=== PATIENT | female | born 1985 | race Caucasian/White ===

== ENCOUNTER 2016-08-21 16:00 | Outpatient (RCR) | payer MEDICAID ==
[~2016-08-21 16:00] MED LIST: VICO5TAB
== END 2016-08-22 | disposition home or self-care (01) ==
LOC: M OUTALCOH 16:00
PROVIDERS: ATTEND Psychiatry & Neurology Psychiatry
DX: F11.20 Opioid dependence, uncomplicated (principal); F17.200 Nicotine dependence, unspecified, uncomplicated

== ENCOUNTER 2016-09-18 16:00 | Outpatient (RCR) | payer MEDICAID | END 2016-09-19 | LOC: M OUTALCOH 16:00 | PROVIDERS: ATTEND Psychiatry & Neurology Psychiatry | DX: F11.20 Opioid dependence, uncomplicated (principal); F17.200 Nicotine dependence, unspecified, uncomplicated ==

== ENCOUNTER 2016-10-13 14:00 | Outpatient (RCR) | payer MEDICAID | END 2016-10-20 | LOC: M OUTALCOH 14:00 | PROVIDERS: ATTEND Psychiatry & Neurology Psychiatry | DX: F11.20 Opioid dependence, uncomplicated (principal); F17.200 Nicotine dependence, unspecified, uncomplicated ==

== ENCOUNTER 2016-11-17 11:00 | Outpatient (RCR) | payer MEDICAID | END 2016-11-19 | LOC: M OUTALCOH 11:00 | PROVIDERS: ATTEND Psychiatry & Neurology Psychiatry | DX: F11.20 Opioid dependence, uncomplicated (principal); F17.200 Nicotine dependence, unspecified, uncomplicated ==

== ENCOUNTER 2016-12-06 10:56 | Emergency (ER) | payer MEDICAID, OTHER ==
[~2016-12-06] VITALS: Ht 162.6 cm; Wt 90.7 kg
[2016-12-06 10:56] VITALS: BP 142/84
[2016-12-06] MEDS ORDERED: FLUO10CA9 PO (11:04)
[2016-12-06] MEDS ORDERED: IBUP80TA PO (11:04)
[2016-12-06] MEDS ORDERED: PRAZ1CAP PO (11:04)
[2016-12-06] MEDS ORDERED: SUBO8MIS SL (11:04)
[2016-12-06] MEDS ORDERED: BUPR150T3 PO (11:04)
[2016-12-06] MEDS ORDERED: KETOROLAC 60 MG/2 ML VIAL (J1885) IM ONE (12:30)
[2016-12-06] MEDS ORDERED: ROBA500T PO (13:01)
[2016-12-06] MEDS ORDERED: NAPR500T PO (13:01)
== END 2016-12-06 13:11 | disposition home or self-care (01) ==
LOC: M ED 12:42
DX: S39.012A Strain of muscle, fascia and tendon of lower back, initial encounter (principal); X50.0XXA Overexertion from strenuous movement or load, initial encounter; Y92.89 Other specified places as the place of occurrence of the external cause; Y93.89 Activity, other specified; Y99.8 Other external cause status; F17.200 Nicotine dependence, unspecified, uncomplicated; Z79.899 Other long term (current) drug therapy; Z88.5 Allergy status to narcotic agent; Z88.8 Allergy status to other drugs, medicaments and biological substances
CPT/HCPCS: 96372; 99282; J1885

== ENCOUNTER 2016-12-14 15:00 | Outpatient (RCR) | payer MEDICAID ==
[~2016-12-14 15:00] MED LIST changes: +BUPR150T3 PO; +FLUO10CA9 PO; +IBUP80TA PO; +NAPR500T PO; +PRAZ1CAP PO; +ROBA500T PO; +SUBO8MIS SL
== END 2016-12-20 ==
LOC: M OUTALCOH 15:00
PROVIDERS: ATTEND Psychiatry & Neurology Psychiatry
DX: F11.20 Opioid dependence, uncomplicated (principal); F17.200 Nicotine dependence, unspecified, uncomplicated

== ENCOUNTER 2016-12-27 14:29 | Outpatient (RCR) | payer MEDICAID | END 2017-01-19 | LOC: M OUTALCOH 14:29 | PROVIDERS: ATTEND Psychiatry & Neurology Psychiatry | DX: F11.20 Opioid dependence, uncomplicated (principal); F17.200 Nicotine dependence, unspecified, uncomplicated ==

== ENCOUNTER 2017-02-07 14:55 | Outpatient (RCR) | payer MEDICAID | END 2017-02-19 | LOC: M OUTALCOH 14:55 | PROVIDERS: ATTEND Psychiatry & Neurology Psychiatry | DX: F11.20 Opioid dependence, uncomplicated (principal); F17.200 Nicotine dependence, unspecified, uncomplicated ==

== ENCOUNTER 2017-02-21 15:28 | Inpatient (IN) | payer MEDICAID, OTHER ==
[~2017-02-21] VITALS: Ht 162.6 cm; Wt 93.8 kg
[~2017-02-21 15:28] MED LIST changes: +AMPICILLIN SOD/SULBACTAM SOD 3 GM in D5W MINI-BAG PLUS 100 ML IV SCH
[2017-02-21] MEDS ORDERED: NS 1,000 ML IV ONE (16:30)
[2017-02-21 16:57] LABS: BASO % 0.2 % (0.0-1.0); EOS # 0.3 K/mm3 (0.0-0.50); EOS % 5.7 % (0.0-3.0); LARGE UNSTAINED CELL # 0.1 K/mm3 (0.0-0.4); LARGE UNSTAINED CELL % 1.1 % (0.0-4.0); LYMPH # 0.6 K/mm3 (1.5-4.5); LYMPH % 11.1 % (24.0-44.0); MEAN CORPUSCULAR HEMOGLOBIN 27.8 pg (27.0-33.0); MEAN CORPUSCULAR HGB CONC 34.1 g/dl (32.0-36.5); MEAN CORPUSCULAR VOLUME 81.5 fl (80.0-96.0); MONO # 0.3 K/mm3 (0.0-0.8); MONO % 5.5 % (0.0-5.0); NEUTROPHILS # 4.1 K/mm3 (1.8-7.7); NEUTROPHILS % 76.4 % (36.0-66.0); PLATELET COUNT, AUTOMATED 145 k/mm3 (150-450); RED CELL DISTRIBUTION WIDTH 13.5 % (11.5-14.5); WHITE BLOOD COUNT 5.3 K/mm3 (4.0-10.0)
[2017-02-21 17:23] LABS: ALBUMIN 3.5 GM/DL (3.2-5.2); ALKALINE PHOSPHATASE 126 U/L (45-117); ALT/SGPT 237 U/L (12-78); AMYLASE 19 U/L (25-115); ANION GAP 10 MEQ/L (8-16); AST/SGOT 178 U/L (15-37); BILIRUBIN,DIRECT 2.8 MG/DL (0.0-0.2); BILIRUBIN,TOTAL 3.9 MG/DL (0.2-1.0); BLOOD UREA NITROGEN 10 MG/DL (7-18); CALCIUM LEVEL 8.6 MG/DL (8.5-10.1); CARBON DIOXIDE LEVEL 26 MEQ/L (21-32); CHLORIDE LEVEL 102 MEQ/L (98-107); CREATININE FOR GFR 0.67 MG/DL (0.55-1.02); GLOMERULAR FILTRATION RATE > 60.0 (>60); GLUCOSE, FASTING 94 MG/DL (70-105); POTASSIUM SERUM 4.1 MEQ/L (3.5-5.1); SODIUM LEVEL 138 MEQ/L (136-145); TOTAL PROTEIN 7.4 GM/DL (6.4-8.2)
[2017-02-21] MEDS ORDERED: PANTOPRAZOLE 40MG INJ (PROTONIX) (C9113) IV ONE (17:30)
[2017-02-21] MEDS ORDERED: METOCLOPRAMIDE INJ 10MG/2ML VIAL (J2765) IV ONE (17:30)
--- NOTE | 2017-02-21 18:14 | REP ---
GALLBLADDER ULTRASOUND: HISTORY: Epigastric pain. There are no filling defects in the gallbladder. The gallbladder wall is thickened. The common bile duct is not seen. A small amount of fluid is present surrounding the gallbladder. There is fatty infiltration of the liver. The pancreas is not seen due to overlying bowel gas. The right kidney is normal in echogenicity. The right kidney measures 5.9 cm in transverse x 4.3 cm in AP x 11.4 cm in cephalocaudal dimensions. There is no hydronephrosis or mass. IMPRESSION: 1. The gallbladder wall is thickened. A small amount of fluid is present surrounding the gallbladder. This is consistent with acalculous cholecystitis. 2. Fatty infiltration of the liver. Signed by Kraig Jimenez MD 02/22/2017 08:19 A
[2017-02-21] MEDS ORDERED: PIPERACILLIN/TAZOBACTAM SOD 3.375 GM in D5W MINI-BAG PLUS 50 ML IV ONE (18:30)
--- NOTE | 2017-02-21 18:45 | HPEPDOC ---
General Surgery H&P Date of Admission History and Physical CHIEF COMPLAINT: Abdominal pain and fever HISTORY OF PRESENT ILLNESS: 31-year-old female presents to the emergency department tonight with complaints of 2 day history of ongoing epigastric and right upper quadrant pain, nausea and vomiting, fever of 103 according to her. Patient reports that she was in her usual state of health up until Sunday evening when she got woken up with severe sharp epigastric and right upper quadrant pain. She was nauseated but was not vomiting. She also has prominent fevers later on up to 103. She was taking ibuprofen to help with the pain and fever. She also notices that her urine has started getting dark. She has not been eating due to the pain and discomfort as well as the nausea. She reports no previous episodes of similar symptoms. She denies taking any illicit drugs, any high amounts of Tylenol. She denies any other members of her family who are sick or any other sick contacts. She denies drinking. She reports that she has been tested for hepatitis C in her antibodies are positive. In high school she has had hepatitis B shots. ALLERGIES: Please see below. HOME MEDICATIONS: Please see below. 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 HEENT: Denies blurred vision and double vision. Denies ear symptoms. Denies hoarseness. NECK: Denies any neck pain. CARDIOVASCULAR: Denies chest pain and palpitations. MUSCULOSKELETAL: Denies arthralgias, back pain and thrombophlebitis. Reports knee pain SKIN: Denies rash. NEUROLOGIC: Denies headache, stroke and transient ischemic attack. PSYCHIATRIC: Denies anxiety and depression. ENDOCRINE: Denies thyroid disease. HEMATOLOGY/ONCOLOGY: Denies any bleeding or clotting disorder. HEART: Denies any chest pains, palpitations, paroxysmal dyspnea, orthopnea. PULMONARY: Denies chronic cough, dyspnea and wheezing. GASTROINTESTINAL: Denies rectal bleeding, family history of colon cancer, constipation, diarrhea, dysphagia GENITOURINARY: Denies dysuria, frequency, hematuria and nocturia. ENDOCRINE: Denies polydipsia, polyphagia, polyuria, heat or cold intolerance. INFECTIOUS: Denies any recent upper respiratory tract infection, UTI, need for use of antibiotics. NUTRITION: Reports poor appetite since the symptoms started PHYSICAL EXAMINATION: VITAL SIGNS: Please see below. GENERAL APPEARANCE: Patient seen at bedside, appears comfortable. Awake, alert, oriented. HEENT: Normocephalic, atraumatic. [place] palpebral conjunctivae. Anicteric sclerae. Lips dry CHEST: No chest wall abnormalities. Normal respiratory motion/effort. NECK: Supple. No thyromegaly. No lymphadenopathies. LUNGS: Lung sounds are clear to auscultation bilaterally. No wheezing appreciated. HEART: No chest wall abnormalities. Heart rate and rhythm are regular with no murmurs. ABDOMEN: Abdomen is moderately obese, soft, moderately rounded. Penicillin incision without any hernia. No umbilical or groin herniation. Tender to palpation over her right upper quadrant area. Patient grimacing. Patient rubbing the area of the right subcostal area with ongoing pain or discomfort. Positive for Sanders sign SKIN: Warm, dry. EXTREMITIES: Extremities have no deformities. No edema identified. NEUROLOGICAL: . ANCILLARIES: . LABORATORY DATA: Please see below. MICROBIOLOGY: Please see below. IMAGING: . US of abdomen 1. The gallbladder wall is thickened. A small amount of fluid is present surrounding the gallbladder. This is consistent with a calculus cholecystitis. There is no cholelithiasis. 2. Fatty infiltration of the liver. IMPRESSION AND PLAN: Her exam and labs fit more pattern of possible obstructive jaundice from: Bile duct stone especially with high elevation of the bilirubin with predominantly direct fraction. She reports febrile episodes though she is afebrile here. We have started on antibiotics for possible cholecystitis/cholangitis. We will repeat her LFTs in the morning. We will get an MRCP to rule out common bile duct stone though if the LFTs are worsening she would most likely need an ERCP. Vital Signs Vital Signs Date Time Temp Pulse Resp B/P (MAP) Pulse Ox O2 Delivery O2 Flow Rate FiO2 02/21/17 15:29 97.2 90 16 127/76 (93) 99 Room Air Laboratory Data Labs 24H Laboratory Tests 2 02/21/17 16:15: Urine Appearance CLOUDYH, Urine Color MARIUM, Urine pH 5.0, Urine Specific [place] 1.021, Urine Protein 2+H, Urine Glucose (UA) NEGATIVE, Urine Ketones 1+H , Urine Urobilinogen 4.0H, Urine Bilirubin 1+H, Urine Leukocyte Esterase 1+H, Urine Blood 2+H, Urine Nitrite NEGATIVE, Urine WBC (Auto) 31H, Urine RBC (Auto) 13H, Urine Hyaline Casts (Auto) 2, Urine Bacteria (Auto) 3+H, Urine Squamous Epithelial Cells 31, Urine Amorphous Sediment SMALLH, Urine Mucus (Auto) SMALL, Urine Sperm (Auto) 02/21/17 16:51: White Blood Count 5.3, Red Blood Count 4.48, Hemoglobin 12.5, Hematocrit 36.5, Mean Corpuscular Volume 81.5, Mean Corpuscular Hemoglobin 27.8, Mean Corpuscular Hemoglobin Concent 34.1, Red Cell Distribution Width 13.5, Platelet Count 145L, Neutrophils (%) (Auto) 76.4H, Lymphocytes (%) (Auto) 11.1L, Monocytes (%) (Auto) 5.5H, Eosinophils (%) (Auto) 5.7H, Basophils (%) (Auto) 0.2 , Neutrophils # (Auto) 4.1, Lymphocytes # (Auto) 0.6L, Monocytes # (Auto) 0.3, Eosinophils # (Auto) 0.3, Basophils # (Auto) 0.0, Large Unclassified Cells % 1.1 , Large Unclassified Cells # 0.1, Anion Gap 10, Glomerular Filtration Rate > 60.0, Calcium Level 8.6, Aspartate Amino Transf (AST/SGOT) 178H, Alanine Aminotransferase (ALT/SGPT) 237H, Alkaline Phosphatase 126H, Total Bilirubin 3.9H, Direct Bilirubin 2.8H, Total Protein 7.4, Albumin 3.5, Albumin/Globulin Ratio 0.90L, Amylase Level 19L, Lipase 82 CBC/BMP Laboratory Tests 02/21/17 16:51 Red Blood Count 4.48, Mean Corpuscular Volume 81.5, Mean Corpuscular Hemoglobin 27.8, Mean Corpuscular Hemoglobin Concent 34.1, Red Cell Distribution Width 13.5 , Neutrophils (%) (Auto) 76.4 H, Lymphocytes (%) (Auto) 11.1 L, Monocytes (%) ( Auto) 5.5 H, Eosinophils (%) (Auto) 5.7 H, Basophils (%) (Auto) 0.2, Neutrophils # (Auto) 4.1, Lymphocytes # (Auto) 0.6 L, Monocytes # (Auto) 0.3, Eosinophils # (Auto) 0.3, Basophils # (Auto) 0.0 Home Medications Scheduled Buprenorphine/Naloxone (Suboxone 8-2 mg) 1 Mis Mis, 1 DOSE SL DAILY, (Reported) PATIENT TAKES ONE AND A HALF FILMS ONE DOSE EVERY DAY Bupropion Hcl (Bupropion HCl Xl) 150 Mg Tab, 150 MG PO DAILY, (Reported) Fluoxetine HCl (Fluoxetine HCl) 10 Mg Cap, 10 MG PO DAILY, (Reported) Prazosin Hcl (Prazosin HCl) 1 Mg Cap, 2 MG PO QHS, (Reported) Scheduled PRN Ibuprofen (Ibuprofen) 200 Mg Tab, 800 MG PO Q6H PRN for PAIN / FEVER, (Reported) Allergies Coded Allergies: Codeine (Verified Adverse Reaction, Unknown, VOMITING / MIGRANE, 10/26/12) Procaine (Verified Adverse Reaction, Unknown, VOMITING / MIGRANE, 10/26/12) ES PELAEZ MD Feb 21, 2017 18:45
[2017-02-21] MEDS ORDERED: IBUPOTC PO (20:12)
--- NOTE | 2017-02-21 20:40 | REPUSA ---
HISTORY: Abdominal pain. Biliary colic. TECHNIQUE: MR abdomen without contrast, with MRCP. COMPARISON: Gallbladder ultrasound February 21, 2017. MR ABDOMEN WITHOUT CONTRAST: Lung bases: No effusion. Liver: 26 cm hepatomegaly. No intrahepatic ductal dilation. Gallbladder: There is a severe edema in the gallbladder fossa and moderate edema surrounding the gall bladder wall. Pancreas: No pancreatic duct dilation. Spleen: 13 cm splenomegaly. Adrenals: Normal size. Kidneys: No hydronephrosis. Aorta: Normal caliber. Bowel loops: Limited evaluation on MRI. Peritoneum: Mild perihepatic ascites. MRCP: The biliary system is normal diameter from the intrahepatic ducts to the common bile duct measu ring 5 mm in the head of the pancreas. The pancreatic duct is normal diameter measuring 2 mm. No ston es are seen within the biliary system. IMPRESSION: 1. Severe hepatomegaly and mild splenomegaly which may indicate intrinsic liver disease such as hepat itis. 2. Significant pericholecystic edema without visible stones or biliary obstruction. Although this may potentially represent acalculus cholecystitis as suggested on recent ultrasound, the appearance may also be caused by 3rd spacing of hepatitis.
[2017-02-21 20:49] VITALS: BP 131/64
[2017-02-21] MEDS: metroNIDAZOLE 500 MG in APPROPRIATE DILUENT 1 EA IV SCH (22:48)
[2017-02-21] MEDS: FLUoxetine 10 MG CAP PO SCH (22:51)
[2017-02-21] MEDS: buPROPion **XL** TABLET 150MG (WELLBUTRIN XL) PO SCH (22:51)
[2017-02-21] MEDS: SENOKOT S TAB PO SCH (22:52)
[2017-02-21] MEDS: LR 1,000 ML IV SCH (22:52)
[2017-02-21] MEDS: PRAZOSIN 1 MG CAP PO SCH (22:52)
[2017-02-21] MEDS: ACETAMINOPHEN TAB 650MG DOSE (2X325MG) PO PRN (22:54)
[2017-02-22] MEDS: AMPICILLIN SOD/SULBACTAM SOD 3 GM in D5W MINI-BAG PLUS 100 ML IV SCH ×4 (02:22→19:48)
[2017-02-22] MEDS: LR 1,000 ML IV SCH ×3 (03:28→18:14)
[2017-02-22] MEDS: metroNIDAZOLE 500 MG in APPROPRIATE DILUENT 1 EA IV SCH ×3 (05:39→21:14)
[2017-02-22] MEDS: ACETAMINOPHEN TAB 650MG DOSE (2X325MG) PO PRN ×2 (05:40→12:26)
[2017-02-22] MEDS: ONDANSETRON 4MG/2ML VIAL (J2405) IV PRN (05:44)
[2017-02-22 06:00] VITALS: BP 108/57
[2017-02-22 07:14] LABS: BASO % 0.2 % (0.0-1.0); EOS # 0.1 K/mm3 (0.0-0.50); EOS % 2.7 % (0.0-3.0); LARGE UNSTAINED CELL # 0.2 K/mm3 (0.0-0.4); LARGE UNSTAINED CELL % 3.5 % (0.0-4.0); LYMPH # 0.7 K/mm3 (1.5-4.5); LYMPH % 10.9 % (24.0-44.0); MEAN CORPUSCULAR HEMOGLOBIN 27.6 pg (27.0-33.0); MEAN CORPUSCULAR HGB CONC 33.9 g/dl (32.0-36.5); MEAN CORPUSCULAR VOLUME 81.5 fl (80.0-96.0); MONO # 0.3 K/mm3 (0.0-0.8); MONO % 6.1 % (0.0-5.0); NEUTROPHILS # 3.6 K/mm3 (1.8-7.7); NEUTROPHILS % 76.7 % (36.0-66.0); PLATELET COUNT, AUTOMATED 115 k/mm3 (150-450); RED CELL DISTRIBUTION WIDTH 13.5 % (11.5-14.5); WHITE BLOOD COUNT 4.7 K/mm3 (4.0-10.0)
[2017-02-22 08:01] LABS: ALBUMIN 2.8 GM/DL (3.2-5.2); ALBUMIN/GLOBULIN RATIO 0.76 (1.00-1.93); ALKALINE PHOSPHATASE 115 U/L (45-117); ALT/SGPT 384 U/L (12-78); ANION GAP 10 MEQ/L (8-16); AST/SGOT 306 U/L (15-37); BILIRUBIN,TOTAL 5.3 MG/DL (0.2-1.0); BLOOD UREA NITROGEN 11 MG/DL (7-18); CARBON DIOXIDE LEVEL 26 MEQ/L (21-32); CHLORIDE LEVEL 102 MEQ/L (98-107); CREATININE FOR GFR 0.65 MG/DL (0.55-1.02); GLOMERULAR FILTRATION RATE > 60.0 (>60); GLUCOSE, FASTING 101 MG/DL (70-105); POTASSIUM SERUM 3.9 MEQ/L (3.5-5.1); SODIUM LEVEL 138 MEQ/L (136-145); TOTAL PROTEIN 6.5 GM/DL (6.4-8.2)
[2017-02-22] MEDS ORDERED: ENOXAPARIN 40 MG/0.4 ML SYRINGE (J1650) SC SCH (09:00)
[2017-02-22] MEDS: buPROPion **XL** TABLET 150MG (WELLBUTRIN XL) PO SCH (09:05)
[2017-02-22] MEDS: SENOKOT S TAB PO SCH ×2 (09:05→21:13)
[2017-02-22] MEDS: FLUoxetine 10 MG CAP PO SCH (09:05)
[2017-02-22] MEDS: PANTOPRAZOLE 40MG INJ (PROTONIX) (C9113) IV SCH (09:05)
[2017-02-22] MEDS: MORPHINE 4 MG/ML 1ML SYRINGE IV PRN ×3 (09:06→19:49)
[2017-02-22 11:46] LABS: BILIRUBIN,DIRECT 4.3 MG/DL (0.0-0.2)
[2017-02-22 14:00] VITALS: BP 129/73
[2017-02-22 16:05] LABS: PERCENT SATURATION 8.8 % (13.2-45.0); TOTAL IRON BINDING CAPACITY 250 UG/DL (250-450)
--- NOTE | 2017-02-22 17:02 | IPNPDOC ---
Subjective General Date/Time Seen The patient was seen on 02/22/17 at 12 pm and at 16:51. Subject Chief Complaint/History The patient is a 31-year-old female admitted with a reason for visit of Acute Cholecystitis, Elevated Lfts. Overnight patient continues to have persistent right upper quadrant pain and discomfort. She also has a fever up to 101. She had an MRCP done. She reports some nausea worse early this morning. Current Medications Current Medications Current Medications Acetaminophen (Tylenol Tab) 650 mg Q4HP PRN PO MILD PAIN or TEMP > 101 Last administered on 02/22/17 12:26; Start 02/21/17 at 19:00; Stop 03/23/17 at 18:59 Ampicillin Sodium/ Sulbactam Sodium 3 gm/Dextrose 100 ml @ 200 mls/hr Q6H IV ; Start 02/21/17 at 02:00; Stop 02/21/17 at 21:54; Status DC Ampicillin Sodium/ Sulbactam Sodium 3 gm/Dextrose 100 ml @ 200 mls/hr Q6H IV Last administered on 02/22/17 15:09; Start 02/22/17 at 02:00; Stop 03/01/17 at 01 :59 Bupropion HCl (Wellbutrin Xl) 150 mg DAILY PO Last administered on 02/22/17 09: 05; Start 02/21/17 at 09:00; Stop 03/23/17 at 08:59 Enoxaparin Sodium (Lovenox) 40 mg DAILY SC Last administered on 02/22/17 09:06 ; Start 02/22/17 at 09:00; Stop 02/27/17 at 08:59 Fluoxetine HCl (PROzac) 10 mg DAILY PO Last administered on 02/22/17 09:05; Start 02/21/17 at 09:00; Stop 03/23/17 at 08:59 Home Med (Med Rec Complete!) ASDIRECTED XX ; Start 02/21/17 at 20:15; Stop at 20:16; Status DC Lactated Ringer's 1,000 ml @ 125 mls/hr Q8H IV Last administered on 02/22/17 10:19; Start 02/21/17 at 19:00; Stop 03/23/17 at 18:59 Metronidazole 500 mg/IV Miscellaneous Supplies 100 ml @ 100 mls/hr Q8H IV Last administered on 02/22/17 12:21; Start 02/21/17 at 21:00; Stop 02/28/17 at 20: 59 Morphine Sulfate (Morphine Sulfate Inj) 4 mg Q2HP PRN IV SEVERE PAIN (PS 8-10) Last administered on 02/22/17 09:06; Start 02/21/17 at 19:00; Stop 02/28/17 at 18: 59 Ondansetron HCl (ZOFRAN INJection) 4 mg Q6HP PRN IV NAUSEA OR VOMITING Last administered on 02/22/17 05:44; Start 02/21/17 at 19:00; Stop 03/23/17 at 18:59 Pantoprazole Sodium (Protonix) 40 mg DAILY IV Last administered on 02/22/17 09: 05; Start 02/22/17 at 09:00; Stop 03/24/17 at 08:59 Prazosin HCl (Minipress) 2 mg QHS PO Last administered on 02/21/17 22:52; Start 02/21/17 at 21:00; Stop 03/23/17 at 20:59 Senna/Docusate Sodium (Senokot S) 1 tab BID PO Last administered on 02/22/17 09 :05; Start 02/21/17 at 21:00; Stop 03/23/17 at 20:59 Allergies Coded Allergies: Codeine (Verified Adverse Reaction, Unknown, VOMITING / MIGRANE, 10/26/12) Procaine (Verified Adverse Reaction, Unknown, VOMITING / MIGRANE, 10/26/12) Objective Physical Examination Examination GENERAL APPEARANCE:Patient seen, sitting up on the chair, appears uncomfortable , rubbing her right upper quadrant area SKIN: Warm and dry. Beginning jaundice. HEENT: Normocephalic, atraumatic. [place] palpebral conjunctiva, beginning mild icteric sclerae. Lips and mucosa appear moist. NECK: Supple, no thyromegaly. No obvious jugular venous distention. LUNGS: Clear to auscultation bilaterally. No wheezing appreciated. HEART: No chest wall abnormalities. Regular rate and rhythm with no murmurs appreciated. ABDOMEN: Abdomen is , moderately rounded, obese, mildly distended. Tender right upper quadrant area, just about the same as last night's exam. EXTREMITIES: Extremities have no deformities. No edema identified. Vital Signs Vital Signs Date Time Temp Pulse Resp B/P (MAP) Pulse Ox O2 Delivery O2 Flow Rate FiO2 02/22/17 09:16 18 02/22/17 06:00 97.5 82 108/57 (74) 96 Room Air I&Os I&O- Last 24 Hours up to 6 AM 02/22/17 06:00 Intake Total 0 ml Output Total 400 ml Balance -400 ml Laboratory Data Labs 24H Laboratory Tests 2 02/22/17 06:56: White Blood Count 4.7, Red Blood Count 3.95L, Hemoglobin 10.9L, Hematocrit 32.2L , Mean Corpuscular Volume 81.5, Mean Corpuscular Hemoglobin 27.6, Mean Corpuscular Hemoglobin Concent 33.9, Red Cell Distribution Width 13.5, Platelet Count 115L, Neutrophils (%) (Auto) 76.7H, Lymphocytes (%) (Auto) 10.9L, Monocytes (%) (Auto) 6.1H, Eosinophils (%) (Auto) 2.7, Basophils (%) (Auto) 0.2 , Neutrophils # (Auto) 3.6, Lymphocytes # (Auto) 0.7L, Monocytes # (Auto) 0.3, Eosinophils # (Auto) 0.1, Basophils # (Auto) 0.0, Large Unclassified Cells % 3.5 , Large Unclassified Cells # 0.2, Anion Gap 10, Glomerular Filtration Rate > 60.0, Blood Urea Nitrogen 11, Creatinine 0.65, Sodium Level 138, Potassium Level 3.9, Chloride Level 102, Carbon Dioxide Level 26, Calcium Level 8.0L, Aspartate Amino Transf (AST/SGOT) 306H, Alanine Aminotransferase (ALT/SGPT) 384H , Alkaline Phosphatase 115, Total Bilirubin 5.3H, Direct Bilirubin 4.3H, Total Protein 6.5, Albumin 2.8L, Albumin/Globulin Ratio 0.76L 02/22/17 15:14: Iron Level 22L, Total Iron Binding Capacity 250, Transferrin % Saturation 8.8L, Salicylates Level < 1.7L, Acetaminophen Level < 2.0L CBC/BMP Laboratory Tests 02/22/17 06:56 Red Blood Count 3.95 L, Mean Corpuscular Volume 81.5, Mean Corpuscular Hemoglobin 27.6, Mean Corpuscular Hemoglobin Concent 33.9, Red Cell Distribution Width 13.5, Neutrophils (%) (Auto) 76.7 H, Lymphocytes (%) (Auto) 10.9 L, Monocytes (%) (Auto) 6.1 H, Eosinophils (%) (Auto) 2.7, Basophils (%) ( Auto) 0.2, Neutrophils # (Auto) 3.6, Lymphocytes # (Auto) 0.7 L, Monocytes # ( Auto) 0.3, Eosinophils # (Auto) 0.1, Basophils # (Auto) 0.0, Calcium Level 8.0 L , Aspartate Amino Transf (AST/SGOT) 306 H, Alanine Aminotransferase (ALT/SGPT) 384 H, Alkaline Phosphatase 115, Total Bilirubin 5.3 H, Direct Bilirubin 4.3 H, Total Protein 6.5, Albumin 2.8 L Impression Right upper quadrant pain and fever, elevated LFTs Initially presumed acute cholecystitis, acalculous cholecystitis is no stones were seen on the ultrasound. Review off the performed MRCP did not show any evidence for stones in the gallbladder nor any biliary dilatation. Her common bile duct is about 5 mm. Her liver is noted to be very enlarged with the tip of the liver extending to the anterior superior iliac spine level. Likewise her spleen. Her LFTs continued to worsen though the transaminitis is not Prominent, her bilirubin has risen to about 5. I checked the direct fraction was 4.3. At this point is not clear whether she actually has cholecystitis or this is primarily hepatitis. I have asked her production team leader to come seizure and render their opinion. I have gotten a HIDA scan to see if this can help us distinguish the source of the elevated liver function test. On further questioning she says that she has tested positive for hepatitis C antibodies which means she has had a hepatitis C infection. She has hepatitis B immunization when she was in high school according to her. Further questioning whether she drinks, she denies this. She did not take much Tylenol. She denies any other illicit substances. I will await for the gastroenterology evaluation and results of HIDA scan but seemingly this is not as initially thought of as cholecystitis. Plan / VTE VTE Prophylaxis Ordered?: Yes ES PELAEZ MD Feb 22, 2017 17:02
--- NOTE | 2017-02-22 17:17 | REP ---
REASON: Hepatitis, cholecystitis. After the intravenous administration of 6.4 millicuries of Technetium 99M mebrofenin hepatobiliary imaging was performed. The gallbladder is probably visualized at 40 minutes. At 1 hour no activity is seen in the duodenum. The patient returned for a 3 hours post injection scintiscan showing increased activity in the gallbladder but again no evidence of activity in the small bowel. IMPRESSION: There is no evidence of acute cholecystitis since the gallbladder visualizes, however, there is no small bowel activity at 3 hours. No gallbladder ejection fraction was ordered or performed. This exam needs to be correlated clinically. Signed by Marques Chen DO 02/22/2017 05:46 P
[2017-02-22] MEDS: PRAZOSIN 1 MG CAP PO SCH (21:14)
[2017-02-22 22:00] VITALS: BP 122/58
[2017-02-23] MEDS: MORPHINE 4 MG/ML 1ML SYRINGE IV PRN ×4 (00:17→22:59)
[2017-02-23] MEDS: AMPICILLIN SOD/SULBACTAM SOD 3 GM in D5W MINI-BAG PLUS 100 ML IV SCH ×4 (02:53→20:56)
[2017-02-23] MEDS: LR 1,000 ML IV SCH ×3 (03:27→20:56)
[2017-02-23] MEDS: metroNIDAZOLE 500 MG in APPROPRIATE DILUENT 1 EA IV SCH ×3 (05:37→23:00)
[2017-02-23 06:00] VITALS: BP 131/58
[2017-02-23 07:18] LABS: BASO % 0.5 % (0.0-1.0); EOS # 0.1 K/mm3 (0.0-0.50); EOS % 3.3 % (0.0-3.0); LARGE UNSTAINED CELL # 0.1 K/mm3 (0.0-0.4); LARGE UNSTAINED CELL % 3.6 % (0.0-4.0); LYMPH # 1.4 K/mm3 (1.5-4.5); MEAN CORPUSCULAR HGB CONC 34.1 g/dl (32.0-36.5); MEAN CORPUSCULAR VOLUME 82.1 fl (80.0-96.0); MONO # 0.3 K/mm3 (0.0-0.8); MONO % 6.5 % (0.0-5.0); NEUTROPHILS # 2.2 K/mm3 (1.8-7.7); PLATELET COUNT, AUTOMATED 100 k/mm3 (150-450); RED CELL DISTRIBUTION WIDTH 13.7 % (11.5-14.5)
[2017-02-23 07:23] LABS: INR 1.12
--- NOTE | 2017-02-23 07:37 | IPNPDOC ---
Subjective General Date/Time Seen The patient was seen on 02/23/17 at 07:34. Subject Chief Complaint/History The patient is a 31-year-old female admitted with a reason for visit of Acute Cholecystitis, Elevated Lfts. Continues to complain of right upper quadrant pain and discomfort, episodes of nausea. No febrile episodes noted overnight. Patient seen by Dr. Mack yesterday. HIDA scan completed late yesterday. Current Medications Current Medications Current Medications Acetaminophen (Tylenol Tab) 650 mg Q4HP PRN PO MILD PAIN or TEMP > 101 Last administered on 02/22/17 12:26; Start 02/21/17 at 19:00; Stop 03/23/17 at 18:59 Ampicillin Sodium/ Sulbactam Sodium 3 gm/Dextrose 100 ml @ 200 mls/hr Q6H IV ; Start 02/21/17 at 02:00; Stop 02/21/17 at 21:54; Status DC Ampicillin Sodium/ Sulbactam Sodium 3 gm/Dextrose 100 ml @ 200 mls/hr Q6H IV Last administered on 02/23/17 02:53; Start 02/22/17 at 02:00; Stop 03/01/17 at 01 :59 Bupropion HCl (Wellbutrin Xl) 150 mg DAILY PO Last administered on 02/22/17 09: 05; Start 02/21/17 at 09:00; Stop 03/23/17 at 08:59 Enoxaparin Sodium (Lovenox) 40 mg DAILY SC Last administered on 02/22/17 09:06 ; Start 02/22/17 at 09:00; Stop 02/27/17 at 08:59 Fluoxetine HCl (PROzac) 10 mg DAILY PO Last administered on 02/22/17 09:05; Start 02/21/17 at 09:00; Stop 03/23/17 at 08:59 Home Med (Med Rec Complete!) ASDIRECTED XX ; Start 02/21/17 at 20:15; Stop at 20:16; Status DC Lactated Ringer's 1,000 ml @ 125 mls/hr Q8H IV Last administered on 02/23/17 03:27; Start 02/21/17 at 19:00; Stop 03/23/17 at 18:59 Metronidazole 500 mg/IV Miscellaneous Supplies 100 ml @ 100 mls/hr Q8H IV Last administered on 02/23/17 05:37; Start 02/21/17 at 21:00; Stop 02/28/17 at 20: 59 Morphine Sulfate (Morphine Sulfate Inj) 4 mg Q2HP PRN IV SEVERE PAIN (PS 8-10) Last administered on 02/23/17 00:17; Start 02/21/17 at 19:00; Stop 02/28/17 at 18: 59 Ondansetron HCl (ZOFRAN INJection) 4 mg Q6HP PRN IV NAUSEA OR VOMITING Last administered on 02/22/17 05:44; Start 02/21/17 at 19:00; Stop 03/23/17 at 18:59 Pantoprazole Sodium (Protonix) 40 mg DAILY IV Last administered on 02/22/17 09: 05; Start 02/22/17 at 09:00; Stop 03/24/17 at 08:59 Prazosin HCl (Minipress) 2 mg QHS PO Last administered on 02/22/17 21:14; Start 02/21/17 at 21:00; Stop 03/23/17 at 20:59 Senna/Docusate Sodium (Senokot S) 1 tab BID PO Last administered on 02/22/17 21 :13; Start 02/21/17 at 21:00; Stop 03/23/17 at 20:59 Allergies Coded Allergies: Codeine (Verified Adverse Reaction, Unknown, VOMITING / MIGRANE, 10/26/12) Procaine (Verified Adverse Reaction, Unknown, VOMITING / MIGRANE, 10/26/12) Objective Physical Examination Examination GENERAL APPEARANCE:Patient seen, laying in bed, awake, alert, and oriented. Comfortable, in no acute distress. SKIN: Warm and moist. HEENT: Normocephalic, atraumatic. [place] palpebral conjunctiva, anicteric sclerae. Lips and mucosa appear moist. NECK: Supple, no thyromegaly. No obvious jugular venous distention. LUNGS: Clear to auscultation bilaterally. No wheezing appreciated. HEART: No chest wall abnormalities. Regular rate and rhythm with no murmurs appreciated. ABDOMEN: Abdomen is , moderately obese, round, tender at right upper quadrant area. Just about same since admission EXTREMITIES: Extremities have no deformities. No edema identified. Vital Signs Vital Signs Date Time Temp Pulse Resp B/P (MAP) Pulse Ox O2 Delivery O2 Flow Rate FiO2 02/23/17 06:00 96.8 81 18 131/58 (82) 96 Room Air I&Os I&O- Last 24 Hours up to 6 AM 02/23/17 06:00 Intake Total 2860 ml Output Total 1050 ml Balance 1810 ml Laboratory Data Labs 24H Laboratory Tests 2 02/22/17 15:14: Iron Level 22L, Total Iron Binding Capacity 250, Transferrin % Saturation 8.8L, Salicylates Level < 1.7L, Acetaminophen Level < 2.0L 02/22/17 17:46: 02/23/17 06:25: White Blood Count 4.0, Red Blood Count 3.69L, Hemoglobin 10.3L, Hematocrit 30.3L , Mean Corpuscular Volume 82.1, Mean Corpuscular Hemoglobin 28.0, Mean Corpuscular Hemoglobin Concent 34.1, Red Cell Distribution Width 13.7, Platelet Count 100L, Neutrophils (%) (Auto) 55.0, Lymphocytes (%) (Auto) 31.0, Monocytes (%) (Auto) 6.5H, Eosinophils (%) (Auto) 3.3H, Basophils (%) (Auto) 0.5, Neutrophils # (Auto) 2.2, Lymphocytes # (Auto) 1.4L, Monocytes # (Auto) 0.3, Eosinophils # (Auto) 0.1, Basophils # (Auto) 0.0, Large Unclassified Cells % 3.6 , Large Unclassified Cells # 0.1, Prothrombin Time 14.6H, Prothromb Time International Ratio 1.12, Activated Partial Thromboplast Time 60.4H CBC/BMP Laboratory Tests 02/23/17 06:25 Red Blood Count 3.69 L, Mean Corpuscular Volume 82.1, Mean Corpuscular Hemoglobin 28.0, Mean Corpuscular Hemoglobin Concent 34.1, Red Cell Distribution Width 13.7, Neutrophils (%) (Auto) 55.0, Lymphocytes (%) (Auto) 31.0, Monocytes (%) (Auto) 6.5 H, Eosinophils (%) (Auto) 3.3 H, Basophils (%) ( Auto) 0.5, Neutrophils # (Auto) 2.2, Lymphocytes # (Auto) 1.4 L, Monocytes # ( Auto) 0.3, Eosinophils # (Auto) 0.1, Basophils # (Auto) 0.0 Microbiology Microbiology 02/22/17 Blood Culture, Received Pending Imaging Studies HIDA Scan There is no evidence of acute cholecystitis since the gallbladder visualizes, however, there is no small bowel activity at 3 hours. No gallbladder ejection fraction was ordered or performed. This exam needs to be correlated clinically. Impression Right upper quadrant pain with fever, elevated LFTs Initially thought of as coming from, cholecystitis. No stones were visualized on imaging studies. The results of the HIDA scan yesterday is more compatible with probably liver dysfunction as the gallbladder was slowly able to be visualized. There was no activity into the duodenum even after 3 hours consistent with some obstructive dysfunction, probably cholestasis. This is more consistent with hepatitis. Gastroenterology is on board. Remaining management is supportive. Her bilirubin is still trending upwards but maybe plateauing. I will discontinue the acetamenophen and just give her oxycodone for pain control. Not sure if continuing antibiotics would mean much for her but given an unclear picture would continue this for now. Will discuss with hospitalist service for possible transfer of service to medicine, as no surgical intervention needed at this time. Plan / VTE VTE Prophylaxis Ordered?: Yes ES PELAEZ MD Feb 23, 2017 07:37
[2017-02-23 07:43] LABS: ALBUMIN 2.5 GM/DL (3.2-5.2); ALBUMIN/GLOBULIN RATIO 0.81 (1.00-1.93); ALKALINE PHOSPHATASE 139 U/L (45-117); ALT/SGPT 564 U/L (12-78); ANION GAP 9 MEQ/L (8-16); AST/SGOT 396 U/L (15-37); BILIRUBIN,TOTAL 5.7 MG/DL (0.2-1.0); BLOOD UREA NITROGEN 9 MG/DL (7-18); CARBON DIOXIDE LEVEL 27 MEQ/L (21-32); CHLORIDE LEVEL 103 MEQ/L (98-107); CREATININE FOR GFR 0.54 MG/DL (0.55-1.02); GLOMERULAR FILTRATION RATE > 60.0 (>60); GLUCOSE, FASTING 90 MG/DL (70-105); POTASSIUM SERUM 3.8 MEQ/L (3.5-5.1); SODIUM LEVEL 139 MEQ/L (136-145); TOTAL PROTEIN 5.6 GM/DL (6.4-8.2)
--- NOTE | 2017-02-23 08:55 | CR.PDOC ---
[facility] Consultation Consultation DATE OF CONSULTATION: Feb 22, 2017 at 15:28 REFERRING PROVIDER: Dr. Terry Becker ATTENDING PHYSICIAN: Dr. Terry Becker REASON FOR CONSULTATION/CHIEF COMPLAINT: Abnormal LFTs. HISTORY OF PRESENT ILLNESS: 31-year-old woman was in her usual state of health until Sunday night when she started having acute onset epigastric abdominal pain with nausea and vomiting and subjective fevers, came to the emergency room yesterday because of persistent abdominal pain and was admitted for possible cholecystitis. Patient was also noted to have abnormal LFTs and GI was consulted for the same. Patient was examined bedside. Patient reports sudden onset, epigastric abdominal pain, sharp in nature, continuous, non radiating, severe in intensity, associated with nausea and vomiting and fever. ( had one documented fever of 101 in hospital yesterday). Denies any precipitating events, sick contacts, alcohol or drug use, unusual food intake. Patient also reports following regularly at psychiatry center for her medication and denies any OTC medications. ALLERGIES: As per EMR. HOME MEDICATIONS: as per EMR . PAST MEDICAL HISTORY: 1. Hepatitis C antibody positive without detectable virus 2. H/o heroin use and currently on Suboxone. PAST SURGICAL HISTORY: 1. reviewed. FAMILY HISTORY: NO Gi cancers or liver problems. SOCIAL HISTORY: Tobacco use: active smoker ETOH: very rare. social - as per patient and nothing recently. Illicit drug use: Prior heroin use- last used in 2014. quit. Currently on suboxone.. Used to smoke marijuana in past. but denies any recent use. REVIEW OF SYSTEMS: CONSTITUTIONAL: Fever. HEENT: No sore throat, no cough. normal vision. CARDIOVASCULAR: no chest pain or palpitations RESPIRATORY: No cough or chest pain. No SOB GENITOURINARY: NO burning micturition or pain. MUSCULOSKELETAL: No joint pain. GASTROINTESTINAL: as above.. SKIN: No rash. NEUROLOGICAL: No focal deficits, AO x 3. patient does report feeling confused initially but now normal. PSYCHIATRIC: Stable, normal affect. HEMATOLOGIC/LYMPHATIC: NO easy bruising, no gum bleeding. PHYSICAL EXAMINATION: VITAL SIGNS: reviewed as per EMR. had fever spike in last 24 hours. GENERAL APPEARANCE: Comfortable, resting on the chair, AAO x 3.. HEENT: NC/ AT, K[place], no neck swellings or lymphadenopathy. RESPIRATORY: Bilateral clear air entry. CARDIOVASCULAR: s1, s2 heard. no murmurs. ABDOMEN: Soft, Obese, minimal right upper quadrant and epigastric abdominal tenderness but no rigidity or guarding. EXTREMITIES: No pedal edema. NEUROLOGICAL: No focal deficits. AAO x 3. LABORATORY DATA: Reviewed in EMR. Imaging results reviewed in EMR. ASSESSMENT: 1. Abnormal LFTs with Mixed hepatocellular and cholestatic pattern. MRI - normal CBD and normal Intrahepatic ducts with fluid in perihepatic and subhepatic area and gall bladder fossa -- DDx - Likely acute hepatitis -- Viral ( hepatitis A, B, C) vs acute on chronic liver disease ( low albumin level and splenomegaly). Less likely biliary obstruction ( no gall stones and normal biliary tree on MRCP). 2. H/o HCV antibody positive but no detectable viral load as per patient- needs further evaluation. RECOMMENDATIONS: - Will obtain Urine toxicology, Acute viral hepatitis markers - HBsAg, HBcAb ( IgM), HBeAg, HBsAb, HAV igM, HAV igG, HCV viral load RNA PCR, - Also will obtain PT/ INR , Septic work up - blood cultures. - daily LFTs and CBC to check for the trend. - Avoid NSAIDs, Ay hepatotoxic medications. - Clear liquid only if tolerating PO - Continue IV antibiotics. - Gi will closely follow. Plan of care discussed with patient and primary team. Allergies Coded Allergies: Codeine (Verified Adverse Reaction, Unknown, VOMITING / MIGRANE, 10/26/12) Procaine (Verified Adverse Reaction, Unknown, VOMITING / MIGRANE, 10/26/12) Home Medications Scheduled Buprenorphine/Naloxone (Suboxone 8-2 mg) 1 Mis Mis, 1 DOSE SL DAILY, (Reported) PATIENT TAKES ONE AND A HALF FILMS ONE DOSE EVERY DAY Bupropion Hcl (Bupropion HCl Xl) 150 Mg Tab, 150 MG PO DAILY, (Reported) Fluoxetine HCl (Fluoxetine HCl) 10 Mg Cap, 10 MG PO DAILY, (Reported) Prazosin Hcl (Prazosin HCl) 1 Mg Cap, 2 MG PO QHS, (Reported) Scheduled PRN Ibuprofen (Ibuprofen) 200 Mg Tab, 800 MG PO Q6H PRN for PAIN / FEVER, (Reported) RICKY EDWARDS MD Feb 22, 2017 16:56
[2017-02-23] MEDS: SENOKOT S TAB PO SCH ×2 (09:17→22:59)
[2017-02-23] MEDS: buPROPion **XL** TABLET 150MG (WELLBUTRIN XL) PO SCH (09:17)
[2017-02-23] MEDS: FLUoxetine 10 MG CAP PO SCH (09:17)
[2017-02-23] MEDS: PANTOPRAZOLE 40MG INJ (PROTONIX) (C9113) IV SCH (09:18)
[2017-02-23 10:07] LABS: BILIRUBIN,DIRECT 4.7 MG/DL (0.0-0.2)
[2017-02-23 10:59] LABS: HEPATITIS B SURFACE ANTIBODY POSITIVE (POSITIVE)
[2017-02-23] MEDS: oxyCODONE 5MG TAB PO PRN (13:06)
[2017-02-23] MEDS ORDERED: NICOTINE 7 MG/24 HR TRANSDERMAL TD PRN (13:30)
[2017-02-23 14:00] VITALS: BP 128/83
--- NOTE | 2017-02-23 14:48 | HPE ---
DATE OF ADMISSION: 02/23/2017 31-year-old female who was admitted to the hospital initially for cholecystitis under the care of Dr. Griggs, noted to have hepatitis and not cholecystitis. GI was already consulted and the patient is being transferred over to the medical/surgical service, as the patient is no longer a surgical patient. HISTORY OF PRESENT ILLNESS: This is a 31-year-old female with a significant past medical history of having had a history of hepatitis C antibody that was positive but without detectable virus, history of heroin IV use in 2015 and currently on Suboxone, who denies any recent IV drug abuse, who presented to the hospital on 02/21/2017 due to complaint of abdominal pain that lasted for 3 days. The patient complains of epigastric right upper quadrant pain that started three days ago prior to her admission to the hospital. The patient was admitted under the surgical service to diagnosis of cholecystitis under the care of Dr. Griggs the general surgeon. Subsequently, due to the elevated transaminitis, GI was consulted. After two days of hospitalization, it was felt that the patient did not have cholecystitis, but more transaminitis secondary to hepatitis. GI was consulted yesterday and was seen by Dr. Dharmesh Mack. The general surgeon requested hospitalization under the care of medicine for transaminitis and suspected hepatitis. He will continue to follow along with us. The patient states that she had abdominal pain on the right upper quadrant along with nausea and vomiting with fever. These symptoms have symptoms not exacerbated while in the hospital, but she had been nothing by mouth for possible surgery for cholecystitis. She was already started on empiric antibiotics by the general surgeon. The patient denies any alcohol use, change in diet, change in medications. Denies any of any trauma to the abdomen. Denies any diarrhea, dysuria, or any recent illness that would contribute to her abdominal discomfort. The patient denies any recent blood transfusion, but she does mention that she utilized IV drugs in 2014. The patient states that when she was for her child, who is roughly 4 years old, she was tested for multiple pathogens, including HIV, hepatitis, and at that time was negative for any antibodies. Subsequently, after her second child's , she also was tested and was negative for hepatitis pathogen at that time or antibody at that time, but she does mention that she utilized IV drug abuse in 2014, which was in between her two pregnancies. The patient is resting comfortably in the medical/surgical floor. Family at the bedside. REVIEW OF SYSTEMS: Ten-point review of systems is negative other than those described in history of present illness. PAST MEDICAL HISTORY: Significant for: 1. Hepatitis C antibody positive without detectable virus. HIV negative in 2013. 2. History of heroin IV use in 2014, last use and currently on Suboxone. PAST SURGICAL HISTORY: Includes 1. section. 2. Dilatation and curettage. 3. Tonsillectomy. 4. Ankle surgery. FAMILY MEDICAL HISTORY: Father medical history is unknown. Mother is healthy, had a cholecystectomy. SOCIAL HISTORY: The patient smokes a half of a pack a day and has been doing so for 15 years. She rarely drinks alcohol, but currently denies any alcohol use. She used to be use heroin, last use in 2014, but quit. Currently on Suboxone. She also used to smoke marijuana in the past but denies any recent use as well. ALLERGIES: She is allergic to CODEINE and PROCAINE. Codeine makes her nauseous. HOME MEDICATIONS: Medications from home are as follows: - Suboxone 8-2 mg one dose sublingual daily - bupropion 150 mg by mouth daily - fluoxetine 10 mg by mouth daily - ibuprofen 800 mg every 6 hours as needed - prazosin 2 mg at night PHYSICAL EXAMINATION: VITAL SIGNS: Last vitals, temperature is 96.8, heart rate of 81, respiratory rate of 16, blood pressure is 131/58, saturating 96% on room air. HEENT: Normocephalic. No trauma. Inspection of the eyes, nose and throat normal. Pupils equal, round, and reactive to light and accommodation. Mucous is moist. Neck is supple. No tracheal deviation. CARDIAC: S1, S2. Regular rate and rhythm. Pulses are present. LUNGS: Equal entry. Did not hear any wheezes, rales or rhonchi. ABDOMEN: Soft, nontender. Bowel sounds present. Slight guarding, but no peritoneal signs, guarding or rigidity noted. The patient has normal mood and affect for current situation. Family at bedside. DIAGNOSTIC STUDIES: WBC today was 4, hemoglobin and hematocrit was 10.3 and 30.3, which is stable. Platelet count of 100, slightly down from admission of 145, but her hemoglobin and hematocrit has trended down, most likely from phlebotomy and IV fluids. Complete metabolic today is within normal except for a creatinine of 0.54, calcium 8, and total bilirubin is 5.7, direct bilirubin is 4.7, AST and ALT is 396 and 564, alkaline phosphatase is 139, total protein 5.6, albumin is 2.5. Her AST and ALT have been trending upwards, along with her bilirubin and direct bilirubin as well. Initially when she came in her lipase was normal, amylase 19. Currently, her ceruloplasmin is pending. Iron is low. TIBC is normal. Transferrin saturation is 8.8. Coagulation studies: INR is within normal. PT is 14.6, PTT is 60.4. Toxicology: Salicylate is less than 1.7, acetaminophen is less than 2.0. UA is positive for urinary tract infection (UTI). Atypical ANCA, P-ANCA, C-ANCA, anti mitochondrial antibodies all pending at this time. In addition, hepatitis panel is pending at this time as well. Again, previously she had HIV testing done, which showed negative in 2012 and in 2013. She had imaging of the gallbladder, which showed gallbladder wall that is thickened, small amount of fluid is present surrounding the gallbladder. This is consistent with acalculous cholecystitis. Fatty infiltration of the liver. MRI of the abdomen showed severe hepatomegaly with mild splenomegaly, which may indicate intrinsic liver disease, such as hepatitis. Significant pericholecystic edema without visible stones or biliary obstruction. Although this may potentially present acalculous cholecystitis, as suggested by recent ultrasound. Appearance could be also caused by third spacing of hepatitis. HIDA scan showed there is no evidence of acute cholecystitis of the gallbladder visualized. However, no small bowel activity at 3 hours. No gallbladder ejection fraction was ordered or performed. This examination needs to be correlated clinically. ASSESSMENT AND PLAN: This is a 31-year-old female with significant past medical history of hepatitis C that is antibody positive without detectable virus but history of IV heroin use, last used had been in 2015, currently on Suboxone, who presented complaining of right upper quadrant pain, roughly 5 days ago. Initially admitted under the surgical service for acalculous cholecystitis. Currently on antibiotic therapy, and GI consult was performed due to transaminitis. Dr. Mack currently on board. The patient's service is being transferred over to the hospitalist service as Dr. Griggs does not believe that the patient currently has cholecystitis and transaminitis secondary to hepatitis. 1. Transaminitis, suspected due to hepatitis. Lab studies, including hepatitis panel and immunology studies, including CYRIL studies are pending at this time. We will continue to follow along and appreciate Dr. Mack's recommendation and evaluation. Would limit nonessential medication as allowed. 2. Urinary tract infection (UTI). Currently on antibiotics for presumed cholecystitis. We will repeat UA and obtain a urine culture as none resulted and discontinue antibiotic as tolerated. Dr. Griggs and the surgical team will still be on the case and will follow the patient along with us. We will also obtain HIV testing, which the patient has consented to. Avoid hepatotoxic medication if possible. 3. Deep vein thrombosis (DVT) prophylaxis with early ambulation and Lovenox.
--- NOTE | 2017-02-23 19:26 | IPNPDOC ---
Date Seen The patient was seen on 02/23/17. at 5:05 pm. Progress Note SUBJECTIVE: Patient is a 31-year-old woman admitted with right upper quadrant and epigastric abdominal pain with nausea and vomiting and labs showing abnormal LFTs.. Work up till now - likely acute hepatitis vs decompensation of chronic liver disease and less likely acute cholecystitis. Interval history: Patient still has abdominal pain but not having any more vomiting and her appetite improved and requesting to eat something. NO fever over the last 24 hours. Denies any any symptoms including diarrhea. PHYSICAL EXAMINATION: VITAL SIGNS: Afebrile over last 24 hours. GENERAL: AAO x 3, mild distress from abdominal pain but ambulating. HEENT: Mild scleral icterus. RESPIRATORY: NO respiratory distress. ABDOMINAL: Soft, tenderness in right upper quadrant. no rigidity or guarding, LABORATORY DATA: reviewed in EMR. HBV immune HAV igM negative. Normal PT/INR. Hepatitis E igM and HCV PCR in lab ( called the lab to confirm -- they are send out labs and will take more time for results.) Blood culture in lab. ASSESSMENT: -- Abnormal LFTs - mixed pattern -- still uptrend in LFTs. DDx - acute hepatitis ( viral or autoimmune) vs decompensation of chronic liver disease ( in view of low albumin) vs DILI. Normal INR and normal renal function. -- Acute onset abdominal pain with nausea and vomiting - now improving. -- Possible UTI as per primary team. Recommendations: - follow up HEV igM, HCV PCR, and autoimmune hepatitis work up. - Also follow up septic work up and continue antibiotics for now. - Can start on clear liquid diet and advance as tolerated. - Obtain Daily LFTs and CBC to trend. - Avoid hepatotoxic medication. - If LFTs continue to worsen then will need repeat complete abdominal USG to r/ o ascites and reassess biliary tree. - Recall GI if any acute change in status. Plan of care discussed with patient and updated nursing team to advance diet. DISPOSITION: . RICKY EDWARDS MD Feb 23, 2017 19:26
[2017-02-23 22:00] VITALS: BP 117/87
[2017-02-23] MEDS: PRAZOSIN 1 MG CAP PO SCH (23:10)
[2017-02-24] MEDS: AMPICILLIN SOD/SULBACTAM SOD 3 GM in D5W MINI-BAG PLUS 100 ML IV SCH ×4 (02:56→20:58)
[2017-02-24] MEDS: LR 1,000 ML IV SCH ×3 (03:09→19:28)
[2017-02-24] MEDS: metroNIDAZOLE 500 MG in APPROPRIATE DILUENT 1 EA IV SCH ×3 (05:44→21:03)
[2017-02-24 06:00] VITALS: BP 118/86
[2017-02-24 06:52] LABS: BASO % 0.7 % (0.0-1.0); EOS # 0.1 K/mm3 (0.0-0.50); EOS % 2.7 % (0.0-3.0); LARGE UNSTAINED CELL # 0.2 K/mm3 (0.0-0.4); LARGE UNSTAINED CELL % 4.2 % (0.0-4.0); LYMPH # 2.5 K/mm3 (1.5-4.5); LYMPH % 53.9 % (24.0-44.0); MEAN CORPUSCULAR HEMOGLOBIN 27.8 pg (27.0-33.0); MEAN CORPUSCULAR HGB CONC 33.7 g/dl (32.0-36.5); MEAN CORPUSCULAR VOLUME 82.7 fl (80.0-96.0); MONO # 0.2 K/mm3 (0.0-0.8); MONO % 4.9 % (0.0-5.0); NEUTROPHILS # 1.5 K/mm3 (1.8-7.7); NEUTROPHILS % 33.6 % (36.0-66.0); PLATELET COUNT, AUTOMATED 123 k/mm3 (150-450); WHITE BLOOD COUNT 4.6 K/mm3 (4.0-10.0)
[2017-02-24 06:58] LABS: INR 1.04
[2017-02-24 07:08] LABS: ALBUMIN 2.4 GM/DL (3.2-5.2); ALBUMIN/GLOBULIN RATIO 0.69 (1.00-1.93); ALKALINE PHOSPHATASE 229 U/L (45-117); ALT/SGPT 408 U/L (12-78); ANION GAP 9 MEQ/L (8-16); AST/SGOT 145 U/L (15-37); BILIRUBIN,TOTAL 4.3 MG/DL (0.2-1.0); BLOOD UREA NITROGEN 8 MG/DL (7-18); CALCIUM LEVEL 8.1 MG/DL (8.5-10.1); CARBON DIOXIDE LEVEL 26 MEQ/L (21-32); CHLORIDE LEVEL 107 MEQ/L (98-107); CREATININE FOR GFR 0.46 MG/DL (0.55-1.02); GLOMERULAR FILTRATION RATE > 60.0 (>60); GLUCOSE, FASTING 120 MG/DL (70-105); POTASSIUM SERUM 3.7 MEQ/L (3.5-5.1); SODIUM LEVEL 142 MEQ/L (136-145); TOTAL PROTEIN 5.9 GM/DL (6.4-8.2)
[2017-02-24] MEDS: oxyCODONE 5MG TAB PO PRN ×2 (09:14→22:12)
[2017-02-24] MEDS: PANTOPRAZOLE 40MG INJ (PROTONIX) (C9113) IV SCH (09:14)
[2017-02-24] MEDS: SENOKOT S TAB PO SCH ×2 (09:15→20:58)
[2017-02-24] MEDS: buPROPion **XL** TABLET 150MG (WELLBUTRIN XL) PO SCH (09:15)
[2017-02-24] MEDS: FLUoxetine 10 MG CAP PO SCH (09:15)
[2017-02-24] MEDS: MORPHINE 4 MG/ML 1ML SYRINGE IV PRN (11:23)
[2017-02-24 14:00] VITALS: BP 123/82
[2017-02-24] MEDS: ONDANSETRON 4MG/2ML VIAL (J2405) IV PRN (19:28)
[2017-02-24 21:02] VITALS: BP 117/72
[2017-02-24] MEDS: PRAZOSIN 1 MG CAP PO SCH (21:02)
[2017-02-24 21:06] VITALS: BP 117/72
--- NOTE | 2017-02-24 21:51 | IPN ---
DATE: 02/24/2017 SUBJECTIVE: The patient seen and examined in the room today. Patient is still complaining about persistent abdominal pain. The patient is still complaining about persistent nausea. The patient stated the pain is actually sharp across the abdomen without significant radiation. The pain is exacerbated when the patient tries to take a deep breath. Other than deep respiration, the patient cannot think about anything worsening or triggering the pain. Nothing will make it better. OBJECTIVE: VITAL SIGNS: Temperature 97.7, pulse is 73, respirations 20, blood pressure 118/86, pulse oximetry 97% on room air. GENERAL: Mild to moderate distress. Alert and oriented times three. HEENT: Normocephalic, atraumatic. Extraocular motor grossly intact. CARDIOVASCULAR: Positive S1, S2. Regular rate. LUNGS: Clear to auscultation bilaterally. ABDOMEN: Soft, bowel sounds present. Slight guarding. EXTREMITIES: No edema, no sign of cyanosis. LABORATORY DATA: WBC is 4.6, hemoglobin 10.4, hematocrit 30.8, platelet count 123. Sodium is 142, potassium 3.7, chloride 107, carbon dioxide 26, BUN 8, creatinine 0.46, GFR greater than 60, fasting glucose 120, calcium 8.1, total bilirubin is 4.3, AST 145, ALT 408, alkaline phosphatase 229. Total protein 5.9, albumin 2.4. ASSESSMENT AND PLAN: 1. Abdominal pain with transaminitis. Gastroenterology (GI) has been assisting on the case and general surgery has been involved in the case. They feel the patient may have hepatitis. Hepatitis panel and immunological study have been ordered. With conservative medical management, the patient started to show decrease of liver function in the past 24 hours. We will continue to further followup with the workup. The patient does have positive for hepatitis A antibody, but IgM level shows the patient may be immunized or does have A. Hepatitis B results also show negative results with prior immunization. Hepatitis C antibody level is positive. The viral load has been pending. HIV is negative. Will continue to follow with diagnostic workup. 2. Urinary tract infection. Urine culture is pending. Currently the patient is on Augmentin. 3. History of heroin intravenous (IV) use. 4. Anxiety/depression on Wellbutrin and Prozac. 5. Tobacco abuse on nicotine patch. 6. Deep venous thrombosis (DVT) prophylaxis. The patient has good activity level. Encourage him to increase ambulation as tolerated.
[2017-02-25] MEDS: AMPICILLIN SOD/SULBACTAM SOD 3 GM in D5W MINI-BAG PLUS 100 ML IV SCH ×4 (02:56→21:08)
[2017-02-25] MEDS: LR 1,000 ML IV SCH ×3 (05:20→21:11)
[2017-02-25] MEDS: metroNIDAZOLE 500 MG in APPROPRIATE DILUENT 1 EA IV SCH ×3 (05:20→21:10)
[2017-02-25 06:00] VITALS: BP 138/82
[2017-02-25 07:27] LABS: INR 0.91
[2017-02-25 07:32] LABS: BASO % 0.3 % (0.0-1.0); EOS % 2.5 % (0.0-3.0); LARGE UNSTAINED CELL % 2.4 % (0.0-4.0); LYMPH # 2.8 K/mm3 (1.5-4.5); LYMPH % 53.1 % (24.0-44.0); MEAN CORPUSCULAR HEMOGLOBIN 27.7 pg (27.0-33.0); MEAN CORPUSCULAR HGB CONC 32.8 g/dl (32.0-36.5); MEAN CORPUSCULAR VOLUME 84.4 fl (80.0-96.0); MONO % 5.4 % (0.0-5.0); NEUTROPHILS # 1.9 K/mm3 (1.8-7.7); NEUTROPHILS % 36.3 % (36.0-66.0); PLATELET COUNT, AUTOMATED 132 k/mm3 (150-450); RED CELL DISTRIBUTION WIDTH 14.4 % (11.5-14.5); WHITE BLOOD COUNT 5.3 K/mm3 (4.0-10.0)
[2017-02-25 07:33] LABS: EOS # 0.1 K/mm3 (0.0-0.50); LARGE UNSTAINED CELL # 0.1 K/mm3 (0.0-0.4); MONO # 0.3 K/mm3 (0.0-0.8)
[2017-02-25 07:48] LABS: ALBUMIN 2.5 GM/DL (3.2-5.2); ALBUMIN/GLOBULIN RATIO 0.83 (1.00-1.93); ALKALINE PHOSPHATASE 353 U/L (45-117); ALT/SGPT 314 U/L (12-78); ANION GAP 10 MEQ/L (8-16); AST/SGOT 99 U/L (15-37); BILIRUBIN,TOTAL 3.4 MG/DL (0.2-1.0); BLOOD UREA NITROGEN 8 MG/DL (7-18); CARBON DIOXIDE LEVEL 28 MEQ/L (21-32); CHLORIDE LEVEL 107 MEQ/L (98-107); CREATININE FOR GFR 0.55 MG/DL (0.55-1.02); GLOMERULAR FILTRATION RATE > 60.0 (>60); GLUCOSE, FASTING 123 MG/DL (70-105); POTASSIUM SERUM 3.9 MEQ/L (3.5-5.1); SODIUM LEVEL 145 MEQ/L (136-145); TOTAL PROTEIN 5.5 GM/DL (6.4-8.2)
[2017-02-25] MEDS: PANTOPRAZOLE 40MG INJ (PROTONIX) (C9113) IV SCH (08:35)
[2017-02-25] MEDS: SENOKOT S TAB PO SCH ×2 (08:35→21:08)
[2017-02-25] MEDS: FLUoxetine 10 MG CAP PO SCH (08:35)
[2017-02-25] MEDS: buPROPion **XL** TABLET 150MG (WELLBUTRIN XL) PO SCH (08:35)
[2017-02-25] MEDS: oxyCODONE 5MG TAB PO PRN ×2 (08:36→15:02)
[2017-02-25 14:00] VITALS: BP 123/66
--- NOTE | 2017-02-25 16:43 | IPN ---
DATE: 02/25/2017 SUBJECTIVE: Patient seen and examined in the room today. The patient stated her abdominal pain across her upper abdomen has been improving. She did have nausea, but symptoms were also controlled with Zofran and the frequency and intensity also decreased. OBJECTIVE: VITAL SIGNS: Temperature 97.1, pulse is 67, respirations 18, blood pressure 138/82, pulse oximetry 96% on room air. GENERAL: No sign of acute distress. Alert and oriented times three. HEENT: Normocephalic, atraumatic. Extraocular motor grossly intact. CARDIOVASCULAR: Positive S1, S2. Regular rate. LUNGS: Clear to auscultation bilaterally. ABDOMEN: Soft, bowel sounds present. Slight guarding. EXTREMITIES: No edema. No sign of cyanosis. LABORATORY DATA: WBC 5.3, hemoglobin 10.8, hematocrit 32.8, platelet count is 132. Sodium 145, potassium 3.9, chloride 107, carbon dioxide 28, BUN 8, creatinine 0.55, GFR greater than 60, fasting glucose is 123. Calcium is 8. Total bilirubin 3.4. AST 99, ALT is 314. Alkaline phosphatase is 353. Total protein 5.5, albumin 2.5. ASSESSMENT AND PLAN: 1. Abdominal pain with transaminitis. Gastroenterology (GI) and general surgery have been involved in the case. Currently we will try to workup autoimmune etiology versus hepatitis. The patient did have immunization to hepatitis A and B. The patient continues to have elevated hepatitis C antibody level. Viral load quantity is pending. HIV is negative. Autoimmune workup pending. 2. Urinary tract infection. Urine culture pending. The patient is on Augmentin. 3. Anxiety/depression on Wellbutrin and Prozac. 4. Tobacco abuse on nicotine patch. 5. Deep venous thrombosis (DVT) prophylaxis. The patient has good activity level. Encourage ambulation.
[2017-02-25] MEDS: PRAZOSIN 1 MG CAP PO SCH (21:09)
[2017-02-25 22:00] VITALS: BP 114/74
[2017-02-26] MEDS: AMPICILLIN SOD/SULBACTAM SOD 3 GM in D5W MINI-BAG PLUS 100 ML IV SCH ×4 (02:25→19:44)
[2017-02-26] MEDS: metroNIDAZOLE 500 MG in APPROPRIATE DILUENT 1 EA IV SCH ×3 (05:08→20:47)
[2017-02-26 06:00] VITALS: BP 100/60
[2017-02-26 06:38] LABS: BASO % 0.4 % (0.0-1.0); EOS # 0.2 K/mm3 (0.0-0.50); EOS % 2.4 % (0.0-3.0); LARGE UNSTAINED CELL # 0.2 K/mm3 (0.0-0.4); LARGE UNSTAINED CELL % 2.8 % (0.0-4.0); LYMPH # 3.3 K/mm3 (1.5-4.5); LYMPH % 50.2 % (24.0-44.0); MEAN CORPUSCULAR HGB CONC 32.5 g/dl (32.0-36.5); MEAN CORPUSCULAR VOLUME 83.1 fl (80.0-96.0); MONO # 0.3 K/mm3 (0.0-0.8); MONO % 4.1 % (0.0-5.0); NEUTROPHILS # 2.5 K/mm3 (1.8-7.7); PLATELET COUNT, AUTOMATED 130 k/mm3 (150-450); WHITE BLOOD COUNT 6.2 K/mm3 (4.0-10.0)
[2017-02-26 06:44] LABS: INR 0.89
[2017-02-26 07:05] LABS: ALBUMIN 2.5 GM/DL (3.2-5.2); ALBUMIN/GLOBULIN RATIO 0.68 (1.00-1.93); ALKALINE PHOSPHATASE 334 U/L (45-117); ALT/SGPT 240 U/L (12-78); ANION GAP 5 MEQ/L (8-16); AST/SGOT 69 U/L (15-37); BILIRUBIN,TOTAL 1.7 MG/DL (0.2-1.0); BLOOD UREA NITROGEN 5 MG/DL (7-18); CALCIUM LEVEL 8.2 MG/DL (8.5-10.1); CARBON DIOXIDE LEVEL 28 MEQ/L (21-32); CHLORIDE LEVEL 108 MEQ/L (98-107); CREATININE FOR GFR 0.54 MG/DL (0.55-1.02); GLOMERULAR FILTRATION RATE > 60.0 (>60); GLUCOSE, FASTING 94 MG/DL (70-105); POTASSIUM SERUM 3.7 MEQ/L (3.5-5.1); SODIUM LEVEL 141 MEQ/L (136-145); TOTAL PROTEIN 6.2 GM/DL (6.4-8.2)
[2017-02-26] MEDS: PANTOPRAZOLE 40MG INJ (PROTONIX) (C9113) IV SCH (07:46)
[2017-02-26] MEDS: buPROPion **XL** TABLET 150MG (WELLBUTRIN XL) PO SCH (07:46)
[2017-02-26] MEDS: FLUoxetine 10 MG CAP PO SCH (07:46)
[2017-02-26] MEDS: SENOKOT S TAB PO SCH ×2 (07:46→20:47)
[2017-02-26] MEDS: oxyCODONE 5MG TAB PO PRN ×2 (10:33→16:40)
[2017-02-26] MEDS: LR 1,000 ML IV SCH ×2 (13:22→23:03)
[2017-02-26 14:00] VITALS: BP 134/74
--- NOTE | 2017-02-26 17:42 | IPN ---
DATE: 02/26/2017 SUBJECTIVE: The patient is seen and examined in the room today. Per patient, she feels that her abdominal, nausea and vomiting have been improving. She is not back to her baseline. The patient actually can tolerate more oral intake now. No overnight events reported. OBJECTIVE: VITAL SIGNS: Temperature is 97.2, pulse is 69, respirations 18, blood pressure 100/60, pulse oximetry 93% in room air. GENERAL: No sign of acute distress. Alert and oriented times three. HEENT: Normocephalic, atraumatic. Extraocular motor grossly intact. CARDIOVASCULAR: Positive S1, S2. Regular rate. LUNGS: Clear to auscultation bilaterally. ABDOMEN: Soft, nontender, nondistended. Bowel sounds present. No rebound. No guarding. EXTREMITIES: No edema. No sign of cyanosis. LABORATORY DATA: WBC is 6.3, hemoglobin 10.3, hematocrit 31.8, platelet count is 130. Sodium is 141, potassium 3.7, chloride is 108, carbon dioxide 28, BUN 5, creatinine 0.54, GFR greater than 60, fasting glucose is 94, calcium is 8.2, total bilirubin 1.7, AST is 69, ALT is 240, alkaline phosphatase is 334, total protein 6.2, albumin 2.5. ASSESSMENT AND PLAN: 1. Abdominal pain with transaminitis. Surgery team and Gastroenterology (GI) have been involved in the case. Currently, we will try to workup for autoimmune etiology versus hepatitis. The patient had immunization to hepatitis A and B. The patient had elevated hepatitis C antibody level. Viral load is still pending. Autoimmune workup has been pending. The patient shows clinical improvement with regards to her abdominal pain, nausea and vomiting. The patient is tolerating a diet well. 2. Urinary tract infection. Urine culture is pending. The patient is on Augmentin. 3. Anxiety/depression, on Wellbutrin and Prozac. 4. Tobacco abuse, on nicotine patch. 5. Deep venous thrombosis (DVT) prophylaxis. The patient has good activity level. Encourage ambulation. The patient will have compression stockings.
[2017-02-26] MEDS: PRAZOSIN 1 MG CAP PO SCH (20:47)
[2017-02-26 22:00] VITALS: BP 125/80
[2017-02-27] MEDS: AMPICILLIN SOD/SULBACTAM SOD 3 GM in D5W MINI-BAG PLUS 100 ML IV SCH ×2 (01:35→09:32)
[2017-02-27] MEDS: metroNIDAZOLE 500 MG in APPROPRIATE DILUENT 1 EA IV SCH ×2 (04:25→14:21)
[2017-02-27 06:00] VITALS: BP 120/74
[2017-02-27 06:53] LABS: BASO % 0.3 % (0.0-1.0); EOS # 0.2 K/mm3 (0.0-0.50); EOS % 2.9 % (0.0-3.0); LARGE UNSTAINED CELL # 0.2 K/mm3 (0.0-0.4); LARGE UNSTAINED CELL % 2.6 % (0.0-4.0); LYMPH # 2.8 K/mm3 (1.5-4.5); LYMPH % 41.4 % (24.0-44.0); MEAN CORPUSCULAR HEMOGLOBIN 27.7 pg (27.0-33.0); MEAN CORPUSCULAR HGB CONC 33.1 g/dl (32.0-36.5); MEAN CORPUSCULAR VOLUME 83.8 fl (80.0-96.0); MONO # 0.3 K/mm3 (0.0-0.8); MONO % 4.1 % (0.0-5.0); NEUTROPHILS # 3.1 K/mm3 (1.8-7.7); NEUTROPHILS % 48.6 % (36.0-66.0); PLATELET COUNT, AUTOMATED 156 k/mm3 (150-450); RED CELL DISTRIBUTION WIDTH 15.5 % (11.5-14.5); WHITE BLOOD COUNT 6.4 K/mm3 (4.0-10.0)
[2017-02-27 07:11] LABS: ALBUMIN 2.7 GM/DL (3.2-5.2); ALBUMIN/GLOBULIN RATIO 0.84 (1.00-1.93); ALKALINE PHOSPHATASE 292 U/L (45-117); ALT/SGPT 186 U/L (12-78); ANION GAP 10 MEQ/L (8-16); AST/SGOT 42 U/L (15-37); BILIRUBIN,TOTAL 1.2 MG/DL (0.2-1.0); BLOOD UREA NITROGEN 9 MG/DL (7-18); CALCIUM LEVEL 8.2 MG/DL (8.5-10.1); CARBON DIOXIDE LEVEL 27 MEQ/L (21-32); CHLORIDE LEVEL 107 MEQ/L (98-107); CREATININE FOR GFR 0.56 MG/DL (0.55-1.02); GLOMERULAR FILTRATION RATE > 60.0 (>60); GLUCOSE, FASTING 118 MG/DL (70-105); POTASSIUM SERUM 3.8 MEQ/L (3.5-5.1); SODIUM LEVEL 144 MEQ/L (136-145); TOTAL PROTEIN 5.9 GM/DL (6.4-8.2)
[2017-02-27] MEDS: SENOKOT S TAB PO SCH (09:32)
[2017-02-27] MEDS: PANTOPRAZOLE 40MG INJ (PROTONIX) (C9113) IV SCH (09:32)
[2017-02-27] MEDS: buPROPion **XL** TABLET 150MG (WELLBUTRIN XL) PO SCH (09:32)
[2017-02-27] MEDS: FLUoxetine 10 MG CAP PO SCH (09:32)
[2017-02-27 14:00] VITALS: BP 121/72
[2017-02-27] MEDS: LR 1,000 ML IV SCH (14:21)
[2017-02-27] MEDS ORDERED: NICO7PA TD (16:03)
[2017-03-01 00:07] LABS: HEPATITIS C QUANTITATION 988230 IU/mL (.); HEPATITIS E IgM ANTIBODY Negative (Negative)
[2017-03-03 08:06] LABS: GC Morphine 3071 ng/mL (Cutoff=200)
--- NOTE | 2017-03-06 23:30 | DS.PDOC ---
Discharge Summary General Date of Admission Feb 21, 2017 at 18:46 Date of Discharge 02/27/2017 Attending Physician: RANDOLPH MEJIA DO Discharge Summary PROCEDURES PERFORMED DURING STAY: [None]. ADMITTING DIAGNOSES: 1. obstructive jaundice DISCHARGE DIAGNOSES: 1. hepatitis of unknown etiology 2. UTI 3. abdominal pain 4. anxiety and depressin 5. tobacco abuse 6. history of polysubstance abuse, in remission COMPLICATIONS/CHIEF COMPLAINT: Acute Cholecystitis, Elevated Lfts. HISTORY OF PRESENT ILLNESS: This is a 31-year-old female with a significant past medical history of having had a history of hepatitis C antibody that was positive but without detectable virus, history of heroin IV use in 2014 and currently on Suboxone, who denies any recent IV drug abuse, who presented to the hospital on 02/21/2017 due to complaint of abdominal pain that lasted for 3 days. The patient complains of epigastric right upper quadrant pain that started three days ago prior to her admission to the hospital. The patient was admitted under the surgical service to diagnosis of cholecystitis under the care of Dr. Griggs the general surgeon. Subsequently, due to the elevated transaminitis, GI was consulted. After two days of hospitalization, it was felt that the patient did not have cholecystitis, but more transaminitis secondary to hepatitis. GI was consulted yesterday and was seen by Dr. Dharmesh Mack. The general surgeon requested hospitalization under the care of medicine for transaminitis and suspected hepatitis. He will continue to follow along with us. The patient states that she had abdominal pain on the right upper quadrant along with nausea and vomiting with fever. These symptoms have symptoms not exacerbated while in the hospital, but she had been nothing by mouth for possible surgery for cholecystitis. She was already started on empiric antibiotics by the general surgeon. The patient denies any alcohol use, change in diet, change in medications. Denies any of any trauma to the abdomen. Denies any diarrhea, dysuria, or any recent illness that would contribute to her abdominal discomfort. The patient denies any recent blood transfusion, but she does mention that she utilized IV drugs in 2014. The patient states that when she was for her child, who is roughly 4 years old, she was tested for multiple pathogens, including HIV, hepatitis, and at that time was negative for any antibodies. Subsequently, after her second child's , she also was tested and was negative for hepatitis pathogen at that time or antibody at that time, but she does mention that she utilized IV drug abuse in 2015, which was in between her two pregnancies. The patient is resting comfortably in the medical/surgical floor. Family at the bedside. HOSPITAL COURSE: Patient was initially admitted by Dr. Griggs, who felt that the patient had acute cholecystitis. When it became evident that she did not and instead had hepatitis, care was transferred to the hospital team. When it was realized that she was seen by [facility], care was transferred to family medicine (on the last day of her admission.) She was seen by GI (Dr. Mack) during her admission, and extensive testing was done, not all of which was complete at the time of hospital discharge. By 02/27 she was feeling better, tolerating PO, and requesting DC from the hospital. She was DCed with follow up with Dr. Mack and Dr. Ware, who she had been trying to transfer care to as an outpt. DISCHARGE MEDICATIONS: Please see below. ALLERGIES: Please see below. PHYSICAL EXAMINATION ON DISCHARGE: VITAL SIGNS: Please see below. GENERAL: anxious appearing but NAD HEENT: MMM, no conjunctivitis NECK: supple CARDIOVASCULAR EXAMINATION: regular rate and rhythm, no murmurs rubs or gallops RESPIRATORY EXAMINATION: clear to auscultation bilat ABDOMINAL EXAMINATION: bowel sounds all 4 quadrants, soft, nontender nondistended EXTREMITIES: no edema SKIN: intact, no rash LABORATORY DATA: Please see below. IMAGING: gallbladder US 02/21 showed: 1. The gallbladder wall is thickened. A small amount of fluid is present surrounding the gallbladder. This is consistent with acalculous cholecystitis. 2. Fatty infiltration of the liver. abdominal MRI 02/21 showed: 1. Severe hepatomegaly and mild splenomegaly which may indicate intrinsic liver disease such as hepatitis. 2. Significant pericholecystic edema without visible stones or biliary obstruction. Although this may potentially represent acalculus cholecystitis as suggested on recent ultrasound, the appearance may also be caused by 3rd spacing of hepatitis. HIDA scan 02/22 showed: IMPRESSION: There is no evidence of acute cholecystitis since the gallbladder visualizes, however, there is no small bowel activity at 3 hours. No gallbladder ejection fraction was ordered or performed. This exam needs to be correlated clinically. PROGNOSIS: fair ACTIVITY: [As tolerated]. DIET: normal DISCHARGE PLAN: home DISPOSITION: 01 Home, Self-Care. DISCHARGE INSTRUCTIONS: 1. establish with Dr. Ware 2. follow up with Dr. Mack 3. take all medications as prescribed 4. avoid acetaminophen, ETOH, and all hepatotoxins 5. seek urgent medical attention if unable to tolerate food or drink ITEMS TO FOLLOWUP ON ON OUTPATIENT: 1. results of labwork (liver testing) 2. trend LFTs DISCHARGE CONDITION: [Stable]. TIME SPENT ON DISCHARGE: Greater than minutes. Discharge Medications Scheduled Buprenorphine/Naloxone (Suboxone 8-2 mg) 1 Mis Mis, 1 DOSE SL DAILY, (Reported) PATIENT TAKES ONE AND A HALF FILMS ONE DOSE EVERY DAY Bupropion Hcl (Bupropion HCl Xl) 150 Mg Tab, 150 MG PO DAILY, (Reported) Fluoxetine HCl (Fluoxetine HCl) 10 Mg Cap, 10 MG PO DAILY, (Reported) Prazosin Hcl (Prazosin HCl) 1 Mg Cap, 2 MG PO QHS, (Reported) Scheduled PRN Nicotine (Nicotine Transdermal Syst) 7 Mg/24 Hr Dis, 1 PATCH TD Q24HP PRN for nicotine withdrawal Allergies Coded Allergies: Codeine (Verified Adverse Reaction, Unknown, VOMITING / MIGRANE, 10/26/12) Procaine (Verified Adverse Reaction, Unknown, VOMITING / MIGRANE, 10/26/12) RANDOLPH MEJIA DO Mar 06, 2017 23:30
== END 2017-02-27 18:30 | disposition home or self-care (01) ==
LOC: M ED 15:28 → M ED INP 18:46 → M MS5PR 20:33
PROVIDERS: ADMIT Surgery; ATTEND Family Medicine
DX: K75.9 Inflammatory liver disease, unspecified (principal); N39.0 Urinary tract infection, site not specified; K21.9 Gastro-esophageal reflux disease without esophagitis; F32.9 Major depressive disorder, single episode, unspecified; F17.210 Nicotine dependence, cigarettes, uncomplicated; F41.9 Anxiety disorder, unspecified; K76.0 Fatty (change of) liver, not elsewhere classified; E66.9 Obesity, unspecified; Z79.899 Other long term (current) drug therapy; Z88.5 Allergy status to narcotic agent; Z88.0 Allergy status to penicillin

== ENCOUNTER 2017-03-08 18:21 | Outpatient (RCR) | payer MEDICAID ==
[~2017-03-08 18:21] MED LIST changes: -AMPICILLIN SOD/SULBACTAM SOD 3 GM in D5W MINI-BAG PLUS 100 ML IV SCH; +IBUPOTC PO; +NICO7PA TD
== END 2017-03-22 ==
LOC: M OUTALCOH 18:21
PROVIDERS: ATTEND Psychiatry & Neurology Psychiatry
DX: F11.20 Opioid dependence, uncomplicated (principal); F17.200 Nicotine dependence, unspecified, uncomplicated

== ENCOUNTER → 2017-03-22 | Outpatient (CLI) | payer OTHER ==
--- NOTE | 2017-03-22 09:03 | REP ---
Right upper quadrant sonography: History: Epigastric pain. Comparison study: No comparison right upper quadrant sonography is from February 21, 2017. This prior study showed some gallbladder wall thickening and pericholecystic fluid. Findings: Scanning through the right upper quadrant of the abdomen demonstrates a normal sized, thin-walled gallbladder without evidence of stone or polyp. Common bile duct is normal measuring 0.5 cm in greatest diameter. No focal liver lesion is seen. Liver size is normal. No pancreatic abnormality is observed. No right renal abnormality is seen. There is no evidence of ascites. The right kidney measures 11.1 x 6.7 x 4.3 cm. Impression: Negative right upper quadrant sonography. The previously noted findings in the gallbladder have resolved. Signed by Mal Brown MD 03/22/2017 08:54 A
== END ==
LOC: M RAD 07:50
PROVIDERS: ATTEND Nurse Practitioner Acute Care
DX: R10.13 Epigastric pain (principal)

== ENCOUNTER → 2017-03-29 | Outpatient (REF) | payer OTHER | LOC: M SFHCPLAZ 12:51 | PROVIDERS: ATTEND Family Medicine | DX: Z12.4 Encounter for screening for malignant neoplasm of cervix (principal); Z11.3 Encounter for screening for infections with a predominantly sexual mode of transmission ==

== ENCOUNTER → 2017-04-29 | Outpatient (CLI) | payer OTHER | LOC: M LAB 11:03 | PROVIDERS: ATTEND Family Medicine | DX: L68.0 Hirsutism (principal) ==

== ENCOUNTER → 2017-11-13 | Outpatient (REF) | payer OTHER | LOC: M SFHCCAPE 07:48 | DX: E66.9 Obesity, unspecified (principal); Z53.9 Procedure and treatment not carried out, unspecified reason ==

== ENCOUNTER → 2017-11-14 | Outpatient (CLI) | payer OTHER | LOC: M CLY 09:31 | DX: M54.5 Low back pain (principal) | CPT/HCPCS: 72110 ==

== ENCOUNTER → 2017-11-14 | Outpatient (REF) | payer OTHER ==
[2017-11-14 18:16] LABS: BASO % 0.4 % (0.0-1.0); EOS # 0.2 10^3/uL (0.0-0.50); EOS % 2.1 % (0.0-3.0); HEMATOCRIT 40.1 % (36.0-47.0); HEMOGLOBIN 13.1 g/dl (12.0-15.5); LYMPH # 3.7 10^3/uL (1.5-4.5); LYMPH % 52.8 % (24.0-44.0); MEAN CORPUSCULAR HEMOGLOBIN 26.3 pg (27.0-33.0); MEAN CORPUSCULAR HGB CONC 32.7 g/dl (32.0-36.5); MEAN CORPUSCULAR VOLUME 80.4 fl (80.0-96.0); MONO # 0.5 10^3/uL (0.0-0.8); MONO % 7.4 % (0.0-5.0); NEUTROPHILS # 2.6 10^3/uL (1.8-7.7); NEUTROPHILS % 37.3 % (36.0-66.0); PLATELET COUNT, AUTOMATED 223 10^3/uL (150-450); RED BLOOD COUNT 4.99 10^6/uL (4.00-5.40); RED CELL DISTRIBUTION WIDTH 14.4 % (11.5-14.5)
[2017-11-14 18:37] LABS: ALBUMIN 3.7 GM/DL (3.2-5.2); ALBUMIN/GLOBULIN RATIO 0.95 (1.00-1.93); ALKALINE PHOSPHATASE 55 U/L (45-117); ALT/SGPT 44 U/L (12-78); ANION GAP 5 MEQ/L (8-16); AST/SGOT 22 U/L (7-37); BILIRUBIN,TOTAL 0.4 MG/DL (0.2-1.0); BLOOD UREA NITROGEN 14 MG/DL (7-18); CALCIUM LEVEL 8.5 MG/DL (8.5-10.1); CARBON DIOXIDE LEVEL 27 MEQ/L (21-32); CHLORIDE LEVEL 108 MEQ/L (98-107); CHOLESTEROL LEVEL 174 MG/DL (<200); CHOLESTEROL RISK RATIO 7.565 (<5); CREATININE FOR GFR 0.74 MG/DL (0.55-1.30); GLOMERULAR FILTRATION RATE > 60.0 (>60); GLUCOSE, FASTING 91 MG/DL (70-100); HDL CHOLESTEROL 23 MG/DL (>40); LDL CHOLESTEROL 78.8 MG/DL (<100); NON-HDL-C 151 MG/DL; POTASSIUM SERUM 4.4 MEQ/L (3.5-5.1); SODIUM LEVEL 140 MEQ/L (136-145); TOTAL PROTEIN 7.6 GM/DL (6.4-8.2); TRIGLYCERIDES LEVEL 361 MG/DL (<150)
[2017-11-14 18:44] LABS: VITAMIN B12 LEVEL 366 PG/ML (247-911)
== END ==
LOC: M SFHCCAPE 09:39 → M LABDRAWC 09:42
DX: E66.9 Obesity, unspecified (principal)

== ENCOUNTER → 2017-11-30 | Outpatient (CLI) | payer OTHER | LOC: M RAD 12:38 | DX: M54.42 Lumbago with sciatica, left side (principal); M51.26 Other intervertebral disc displacement, lumbar region; M51.27 Other intervertebral disc displacement, lumbosacral region; M47.816 Spondylosis without myelopathy or radiculopathy, lumbar region; M47.817 Spondylosis without myelopathy or radiculopathy, lumbosacral region | CPT/HCPCS: 72148 ==

== ENCOUNTER 2018-05-01 22:20 | Emergency (ER) | payer OTHER ==
[2018-05-02] MEDS: diphenhydrAMINE 50 MG CAP PO (00:33)
== END 2018-05-02 01:01 | disposition home or self-care (01) ==
LOC: M ED 22:20
DX: J06.9 Acute upper respiratory infection, unspecified (principal); L29.9 Pruritus, unspecified; T36.95XA Adverse effect of unspecified systemic antibiotic, initial encounter; X58.XXXA Exposure to other specified factors, initial encounter; K21.9 Gastro-esophageal reflux disease without esophagitis; F33.9 Major depressive disorder, recurrent, unspecified; F41.9 Anxiety disorder, unspecified; F43.10 Post-traumatic stress disorder, unspecified; Z79.899 Other long term (current) drug therapy; Z79.891 Long term (current) use of opiate analgesic; Z88.5 Allergy status to narcotic agent; Z88.6 Allergy status to analgesic agent; Z91.030 Bee allergy status; F17.210 Nicotine dependence, cigarettes, uncomplicated
CPT/HCPCS: 99283

== ENCOUNTER → 2018-05-10 | Outpatient (CLI) | payer OTHER | LOC: M RAD 08:16 | DX: R10.13 Epigastric pain (principal) | CPT/HCPCS: 76705 ==

== ENCOUNTER → 2018-06-21 | Outpatient (CLI) | payer OTHER | LOC: M RAD 08:20 | DX: R10.11 Right upper quadrant pain (principal) | CPT/HCPCS: J2805 ==

== ENCOUNTER 2019-01-02 13:37 | Inpatient (IN) | payer OTHER ==
[~2019-01-02] VITALS: Ht 162.6 cm; Wt 98.5 kg
[~2019-01-02 13:37] MED LIST changes: +AFRI0.0511; +AMOX/K; +BENZ200C70 PO; +DOXY100C37 PO; +NAPR-837 PO; -NAPR500T PO; +TIZANIDINE
[2019-01-02] MEDS ORDERED: ONDA4TAB5 PO (13:47)
[2019-01-02] MEDS ORDERED: METOCLOPRAMIDE INJ 10MG/2ML VIAL (J2765) IV ONE (14:15)
[2019-01-02] MEDS ORDERED: NS 1,000 ML IV ONE (14:15)
[2019-01-02 15:54] LABS: HEMATOCRIT 38.7 % (36.0-47.0); HEMOGLOBIN 12.9 g/dl (12.0-15.5); MEAN CORPUSCULAR HEMOGLOBIN 26.7 pg (27.0-33.0); MEAN CORPUSCULAR HGB CONC 33.3 g/dl (32.0-36.5); MEAN CORPUSCULAR VOLUME 80.1 fl (80.0-96.0); PLATELET COUNT, AUTOMATED 117 10^3/uL (150-450); RED BLOOD COUNT 4.83 10^6/uL (4.00-5.40)
[2019-01-02 16:00] LABS: WHITE BLOOD COUNT 10.1 10^3/uL (4.0-10.0)
--- NOTE | 2019-01-02 16:22 | REP ---
Right upper quadrant sonography: History: Upper abdominal pain and vomiting. Comparison is made with MRI study from February 21, 2017. Findings: Scanning through the right upper quadrant of the abdomen demonstrates a dilated, 10.7 cm gallbladder. Its anterior wall appears thickened up to 6 mm in thickness. On some images it appears to contain some intramural fluid. There is no evidence of calculus, however, or sludge. Common bile duct is normal measuring 0.4 cm in greatest diameter. The liver has a midclavicular vertical span of 26 cm and therefore it is considered enlarged. No focal liver lesion is seen. There is some evidence of fatty infiltration. No pancreatic abnormalities observed. The distal body and tail of the pancreas are obscured by bowel gas. The right kidney measures 11.4 x 6.6 x 3.8 cm. No significant right renal abnormality is observed. Impression: Significant hepatomegaly again observed with evidence of fatty infiltration. The gallbladder is distended and there is gallbladder wall thickening and some pericholecystic or intramural gallbladder wall fluid. No stone is seen. Common bile duct is normal in caliber. Findings are similar to the prior MRI study from February of 2017. Electronically Signed by Mal Brown MD 01/03/2019 02:58 P
[2019-01-02 16:23] LABS: ATYPICAL LYMPH 25 % (0-5); EOSINOPHILS 1 % (0-5); LYMPHOCYTES 39 % (16-52); MONOCYTES 5 % (0-8); NEUTROPHILS 30 % (35-75); PLATELET ESTIMATE DECREASED (NORMAL)
[2019-01-02 16:28] LABS: ALT/SGPT 2225 U/L (12-78); AMYLASE 12 U/L (25-115); BILIRUBIN,TOTAL 11.9 MG/DL (0.2-1.0); BLOOD UREA NITROGEN 15 MG/DL (7-18); CALCIUM LEVEL 8.8 MG/DL (8.5-10.1); CARBON DIOXIDE LEVEL 28 MEQ/L (21-32); CHLORIDE LEVEL 96 MEQ/L (98-107); CREATININE FOR GFR 0.77 MG/DL (0.55-1.30); GLOMERULAR FILTRATION RATE > 60.0 (>60); GLUCOSE, FASTING 90 MG/DL (70-100); LIPASE 78 U/L (73-393); POTASSIUM SERUM 3.6 MEQ/L (3.5-5.1); SODIUM LEVEL 135 MEQ/L (136-145); TOTAL PROTEIN 7.1 GM/DL (6.4-8.2)
[2019-01-02] MEDS ORDERED: OMEP-218 PO (17:10)
[2019-01-02] MEDS ORDERED: FLUO10CA8 PO (17:10)
[2019-01-02] MEDS ORDERED: ONDANSETRON 4 MG ORAL DISINTEGRATING TAB (Q0162 PER 1MG) SL PRN (18:00)
[2019-01-02] MEDS ORDERED: MORPHINE 10MG/0.5ML ORAL CONCENTRATE SOLUTION U/D SL PRN (18:00)
--- NOTE | 2019-01-02 18:16 | REPVR ---
EXAM: CT Abdomen and Pelvis Without Contrast EXAM DATE/TIME: 01/02/2019 5:54 PM CLINICAL HISTORY: 33 years old, female; Abdominal pain; Other: Luq; Additional info: Luq abdominal pain TECHNIQUE: Imaging protocol: Axial computed tomography images of the abdomen and pelvis without contrast. Coronal and sagittal reformatted images were created and reviewed. Radiation optimization: All CT scans at this facility use at least one of these dose optimization techniques: automated exposure control; mA and/or kV adjustment per patient size (includes targeted exams where dose is matched to clinical indication); or iterative reconstruction. COMPARISON: No relevant prior studies available. FINDINGS: ABDOMEN: Liver: Hepatomegaly. Gallbladder and bile ducts: Normal. No calcified stones. No ductal dilation. Pancreas: Normal. No ductal dilation. Spleen: There is moderate splenomegaly with a maximum span of 15 centimeters. No focal abnormalities demonstrated. Adrenals: Normal. No mass. Kidneys and ureters: Normal. No hydronephrosis. Stomach and bowel: Normal. No obstruction. No mucosal thickening. Appendix: No evidence of appendicitis. PELVIS: Bladder: Unremarkable as visualized. Reproductive: Unremarkable as visualized. ABDOMEN and PELVIS: Intraperitoneal space: Normal. No free air. No significant fluid collection. Bones/joints: Severe central spinal stenosis at L2-3 and L4-5, moderate to severe central spinal stenosis at L3-4 secondary to bulging adenoid and congenitally shortened pedicles. Diffusely bulging annulus at L5-S1. Soft tissues: Umbilical hernia. Vasculature: Normal. No abdominal aortic aneurysm. Lymph nodes: Retroperitoneal lymph nodes measure up to 11 mm in the left para-aortic region. IMPRESSION: 1. Hepatomegaly. 2. There is moderate splenomegaly with a maximum span of 15 centimeters. No focal abnormalities demonstrated. 3. Small retroperitoneal lymph nodes of uncertain significance. Electronically signed by: Aram House On 01/02/2019 18:16:25 PM
--- NOTE | 2019-01-02 18:17 | HPEPDOC ---
[facility] Medical History & Physical Date of Admission Jan 02, 2019 Date of Service: Jan 02, 2019 History and Physical PCP: Татьяна Serrano CHIEF COMPLAINT: Abdominal pain HISTORY OF PRESENT ILLNESS: Patient is a 33-year-old female with a history of hepatitis C known to her for many years. She was in the state of her usual health when on Sunday she was out in the sun all day doing yard work the next day she began to have left upper quadrant abdominal pain associated with intermittent vomiting no blood. Worsened by food achy in nature that came and went but progressively worsened to the point that it stayed. She did present to urgent care yesterday was provided Zofran and had no further vomiting but had persistence of pain and awoke this morning with yellow when her eyes. She states that 2 years ago she was admitted here at [facility] with yellow in her eyes and was in liver failure at that time. She was seen by GI at that time and to follow-up outpatient but never received any treatment for her hepatitis C due to her noncompliance self-admittedly.. Otherwise patient denies weight loss, hair loss, headache, visual changes, chest pain, shortness of breath, cough, muscle aches, worsening arthritis, change in mood PAST MEDICAL HISTORY: 1. Hepatitis C. 2. PTSD anxiety depression. 3. Gastroesophageal reflux disease. HOME MEDICATIONS: Please see below. ALLERGIES: Please see below PAST SURGICAL HISTORY: 1. Tonsils and adenoidectomy 1998. 2. Laparoscopic 2002. 3. D&C 2002 4. Ankle surgery 5. 2. 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 Johnson is on Suboxone, Tattoos done unprofessionally: Denies, CODE STATUS: Full code FAMILY HISTORY: Father was an alcoholic otherwise Reviewed and noncontributory REVIEW OF SYSTEMS: 10 systems reviewed and negative other than HPI PHYSICAL EXAMINATION: VITAL SIGNS: Temperature 97, pulse 104, respiratory rate 18, blood pressure 131/83, pulse oximetry 98 % on room air. GENERAL: [Pleasant obese female lying in a stretcher at a 30 angle awake alert oriented speaking in complete sentences no acute distress.. She is clearly jaundiced she does appear to have erythematous skin with first-degree sunburns on sun exposed areas no bullae or vesicles lesions HEENT: Mildly dry mucous membranes no elevation and CVP CARDIOVASCULAR: S1 S2 regular no additional heart sounds appreciated. She is not tachycardic at the time of my exam RESPIRATORY: Clear to auscultation bilaterally. ABDOMINAL: Bowel sounds present abdomen soft and diffusely tender but most sore in the left upper quadrant EXTREMITIES: No clubbing cyanosis or edema NEUROLOGICAL: Spontaneously moves all 4 extremities cranial 2 through 12 grossly intact no gross focal deficits appreciated PSYCHOLOGICAL: Appropriate LABORATORY DATA: See below. MICROBIOLOGY: Please see below. IMAGING: Gallbladder ultrasound:Significant hepatomegaly again observed with evidence of fatty infiltration. The gallbladder is distended and there is gallbladder wall thickening and some pericholecystic or intramural gallbladder wall fluid. No stone is seen. Common bile duct is normal in caliber. Findings are similar to the prior MRI study from February of 2017. ASSESSMENT & PLAN: This is a 33-year-old female with left upper quadrant abdominal pain. PROBLEMS: 1. Left upper quadrant abdominal pain: Etiology is not immediately clear she certainly has significant elevation in her liver function test deviated from her normal without an obvious precipitating factor. She has had sun exposure but no history of skin lesions to suggest porphyruria. She denies any recent alcohol or substance abuse that could trigger it or acute medications or changes in medications. Nursing staff or having difficulty placing intravenous access, as such I'll order a midline placement for tomorrow. I will trend her LFTs have res tarted to gastroenterology to see her in consultation who are familiar with her. I'll keep her nothing by mouth and allow her to have some bowel rest. I'll check an MRCP as well as a CT scan of the abdomen and pelvis to better elucidate the etiology of her abdominal pain. She reportedly did complain of some fevers and chills a provider prior to the onset of her symptoms, I will check a respiratory PCR panel to exclude a superimposed viral infection as well as blood cultures however I'll hold off on any antibiotics as I do not see any obvious source of infection. I will check an INR in order to evaluate the function of her liver. She is certainly mildly dehydrated would benefit from normal saline as soon as we're able to provide her with a. I'll provide her with antiemetics 2. Thrombocytopenia: Likely related to her liver disease 3. Elevated liver function tests: Elevated further than her baseline, unclear the etiology for her acute hepatitis C flare 4. History of substance abuse: Given her elevation in her liver function tests I will check a toxicology (do believe her. She has not been actively using 5. Gastroesophageal reflux disease: Provided with IV PPI certainly could have some gastritis secondary to vomiting for the last several days this may improve with bowel rest DVT PROPHYLAXIS: Sequentials teds encourage ambulation DISPOSITION: Progressive care unit Vital Signs Vital Signs Date Time Temp Pulse Resp B/P (MAP) Pulse Ox O2 Delivery O2 Flow Rate FiO2 01/02/19 15:15 01/02/19 13:38 97.0 104 18 98 Room Air Laboratory Data Labs 24H Laboratory Tests 2 01/02/19 14:08: Urine Color MARIUM, Urine Appearance HAZY, Urine pH 5.0, Urine Specific [place] 1.023, Urine Protein NEGATIVE, Urine Glucose (UA) NEGATIVE, Urine Ketones TR ACEH, Urine Blood NEGATIVE, Urine Nitrite NEGATIVE, Urine Bilirubin 2+H, Urine Urobilinogen 4.0H, Urine Leukocyte Esterase NEGATIVE, Urine WBC (Auto) 1, Urine RBC (Auto) 1, Urine Hyaline Casts (Auto) 0, Urine Bacteria (Auto) 1+H, Urine Squamous Epithelial Cells 2, Urine Mucus (Auto) SMALL, Urine Sperm (Auto) 01/02/19 15:41: White Blood Count 10.1H, Red Blood Count 4.83, Hemoglobin 12.9, Hematocrit 38.7, Mean Corpuscular Volume 80.1, Mean Corpuscular Hemoglobin 26.7L, Mean C orpuscular Hemoglobin Concent 33.3, Red Cell Distribution Width 14.8H, Platelet Count 117L, Lymphocytes # (Auto) , Nucleated Red Blood Cells % (auto) 0.0, Neutrophils 30L, Lymphocytes (Manual) 39, Monocytes (Manual) 5, Eosinophils (Manual) 1, Atypical Lymphocytes 25H, Platelet Estimate DECREASED, Red Blood Cell Morphology NORMAL, Anion Gap 11, Glomerular Filtration Rate > 60.0, Blood Urea Nitrogen 15, Creatinine 0.77, Sodium Level 135L, Potassium Level 3.6, Chloride Level 96L, Carbon Dioxide Level 28, Calcium Level 8.8, Aspartate Amino Transf (AST/SGOT) 652H, Alanine Aminotransferase (ALT/SGPT) 2225H, Alkaline Phosphatase 296H, Total Bilirubin 11.9H, Total Protein 7.1, Albumin 3.0L, Albumin/Globulin Ratio 0.73L, Amylase Level 12L, Lipase 78 CBC/BMP Laboratory Tests 01/02/19 15:41 Red Blood Count 4.83, Mean Corpuscular Volume 80.1, Mean Corpuscular Hemoglobin 26.7 L, Mean Corpuscular Hemoglobin Concent 33.3, Red Cell Distribution Width 14.8 H, Lymphocytes # (Auto) , Calcium Level 8.8, Aspartate Amino Transf (AST/SGOT) 652 H, Alanine Aminotransferase (ALT/SGPT) 2225 H, Alkaline Phosphatase 296 H, Total Bilirubin 11.9 H, Total Protein 7.1, Albumin 3.0 L Home Medications Scheduled Buprenorphine HCl/Naloxone HCl (Suboxone 8 mg-2 mg Sl Film) 1 Mis Mis, 1.5 FILM SL DAILY Bupropion Hcl (Bupropion Xl) 150 Mg Tab, 150 MG PO DAILY Fluoxetine Hcl (Fluoxetine HCl) 10 Mg Capsule, 10 MG PO DAILY Omeprazole (Omeprazole) 20 Mg Capsule.dr, 20 MG PO DAILY Prazosin Hcl (Prazosin HCl) 1 Mg Cap, 2 MG PO QHS Scheduled PRN Ondansetron HCl (Ondansetron HCl) 4 Mg Tablet, 4 MG PO Q6H PRN for NAUSEA OR VOMITING Allergies Coded Allergies: amoxicillin (Verified Allergy, Severe, anyphylaxis, 01/02/19) bee pollen (Verified Allergy, Unknown, 01/02/19) codeine (Verified Adverse Reaction, Unknown, VOMITING/MIGRAINE, 01/02/19) procaine (Verified Adverse Reaction, Unknown, VOMITING/MIGRAINE, 01/02/19) A-FIB/CHADSVASC A-FIB History Current/History of A-Fib/PAF?: No NOY COATS MD Jan 02, 2019 18:17
[2019-01-02 18:26] LABS: C REACTIVE PROTEIN QUANTITATIV 2.25 MG/DL (0.00-0.30)
[2019-01-02 18:31] LABS: INR 0.97
[2019-01-02 18:46] LABS: ERYTHROCYTE SEDIMENTATION RATE 25 mm/hr (0-20)
[2019-01-02 19:00] LABS: AMPHETAMINES LEVEL URINE NEGATIVE (NEGATIVE); BARBITURATES URINE NEGATIVE (NEGATIVE); BENZODIAZEPINES URINE NEGATIVE (NEGATIVE); CANNABINOIDS URINE NEGATIVE (NEGATIVE); COCAINE METABOLITE URINE NEGATIVE (NEGATIVE); METHADONE URINE NEGATIVE (NEGATIVE); OPIATES URINE NEGATIVE (NEGATIVE); PHENCYCLIDINE URINE NEGATIVE (NEGATIVE)
[2019-01-02 20:23] VITALS: BP 127/72
--- NOTE | 2019-01-02 20:50 | REPVR ---
EXAM: MR Abdomen Without Contrast EXAM DATE/TIME: 01/02/2019 7:53 PM CLINICAL HISTORY: 33 years old, female; Abdominal pain; Acute; Patient HX: Abdomen pain vomiting, HX hep c; Additional info: Abomdinal pain, elevated lfts TECHNIQUE: Imaging protocol: MR of the abdomen without contrast. 3D rendering: MIP reconstructed images were created and reviewed. COMPARISON: CT ABD PELVIS W/O CONTRAST 01/02/2019 5:47 PM FINDINGS: Liver: There is diffuse loss of hepatic signal on out of phase images in comparison to in phase images consistent with steatosis. No focal abnormalities demonstrated. Liver size is increased. Increased T2 weighted signal demonstrated in the periportal soft tissues, findings can be associated with acute hepatitis. Gallbladder and bile ducts: Pericholecystic fluid. Gallbladder otherwise unremarkable. Clinical correlation to exclude acute gallbladder pathology suggested. Pancreas: Unremarkable. No ductal dilation. Spleen: There is moderate splenomegaly with a maximum span of 15 centimeters. No focal abnormalities demonstrated. Adrenals: Unremarkable. No mass. Kidneys and ureters: Unremarkable. No solid mass. No hydronephrosis. Stomach and bowel: Unremarkable. Intraperitoneal space: No fluid collection. Arteries: No abdominal aortic aneurysm. Soft tissues: Unremarkable. IMPRESSION: 1. There is diffuse loss of hepatic signal on out of phase images in comparison to in phase images consistent with steatosis. No focal abnormalities demonstrated. Liver size is increased. Increased T2 weighted signal demonstrated in the periportal soft tissues, findings can be associated with acute hepatitis. 2. There is moderate splenomegaly with a maximum span of 15 centimeters. No focal abnormalities demonstrated. 3. Pericholecystic fluid. Gallbladder otherwise unremarkable. Clinical correlation to exclude acute gallbladder pathology suggested. Electronically signed by: Aram House On 01/02/2019 20:49:27 PM
[2019-01-02] MEDS: PRAZOSIN 1 MG CAP PO SCH (21:00)
[2019-01-02] MEDS: PANTOPRAZOLE 40MG INJ (PROTONIX) (C9113) IV SCH (21:00)
--- NOTE | 2019-01-02 21:10 | CR.PDOC ---
General Date of Consultation: Jan 02, 2019 Referring Provider: NOY COATS MD Attending Physician: RICKY EDWARDS MD Consultation Primary physician/ hospitalist: Dr. Coats Reason for consult: Abnormal liver tests HPI: 33-year-old female patient with acute recurrent hepatitis C in 2017, (noncompliant with follow-up), anxiety/depression, chronic acid reflux, presented to ER for complaints of upper abdominal pain, associated with intermittent vomiting. GI was consulted for abnormal liver panel. Patient reports acute onset nausea with persistent vomitign which started on sunday, not able to tolerate any oral diet, with associated upper abdominal pain. Patient came to urgent care and was given zofran. Patient noted with jaundice with persistent abdominal pain and hence came to ER. Patient reports the abdominal pain is left upper quadrant, but on exam, noted bother left and right upper quadrant pain. Patient denies any fever, chills, sick contacts, OTC medications, herbal supplements, IVDA. Pertinent negative GI symptoms: Patient denies diarrhea, loss of appetite, early satiety or unintentional weight loss. No history of hematemesis, melena or hematochezia. Patient reports regular bowel movements. Review of Systems: GI: as stated above CVS: No chest pain, No palpitations, No leg swelling. 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 Skin: No rash : No hematuria, No burning sensation of the urine ENT: No ear discharge/ pain, No dysphagia. Eyes: No photophobia. Home medications: reviewed. Antithrombotic agents -none Medical h/o: As above. Surgical h/o: None on abdomen. Social h/o: Alcohol-quit alcohol many years ago, tobacco-active smoker, IVDA/ drugs-history of IV heroin abuse, quit 4 years ago, on Suboxone. Patient denies any recent use. Family h/o of GI cancers -none Prior Endoscopies: None in [facility] Prior GI evaluation: Patient was once seen in GI clinic by me but did not follow up. Exam: Vitals: reviewed General: Alert and oriented x 3, not in distress HEENT: NO pallor, noted severe icterus. Normal oropharynx, NO cervical lymph nodes. Chest: symmetric with bilateral clear air entry, CVS: S1, S2 heard, normal, no murmurs . Abdomen: non-distended, no surgical scars, soft, mild tenderness on deep palpation in the upper quadrant, no palpable masses, normal bowel sounds heard. Rectal exam: Patient refused. Extremities: no pedal edema, pulses palpable. 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 Moves all extremities Skin: Noted sunburns. Labs: reviewed. Imaging tests: reviewed Impression: -- Acute onset nausea, vomiting and upper abdominal pain with jaundice, abnormal liver panel with prior similar episode with acute hepatitis C in 2017, normal CBD on MRI and CT, hepatomegaly and pericholecystic fluid -- DDX -- likely acute hepatitis from recurrence or re-activation vs less likely DILI vs ischemic hepatopathy. unlikely cholecystitis, Recommendations: - Patient educated about the test results, possible differential diagnoses and All questions answered. - IV hydration - Oral diet as tolerated. ( order placed to advance diet). - Avoid hepatotoxic medications. - Please obtain HCV VL, Urine and serum toxicology, LDH. - Monitor INR and mental status. If any worsening of mental status or INR, needs referral to liver center. - Supportive care. - Patient is educated compliance with medical follow up and further therapy depending on the work up results.. Plan of care discussed with patient and primary team. Patient verbalized understanding and agreed with the plan. Vital Signs/I&O Vital Signs Date Time Temp Pulse Resp B/P (MAP) Pulse Ox O2 Delivery O2 Flow Rate FiO2 01/02/19 20:23 83 18 127/72 (90) 95 01/02/19 13:38 97.0 Room Air Laboratory Data Labs 24H Laboratory Tests 2 01/02/19 14:08: Urine Color MARIUM, Urine Appearance HAZY, Urine pH 5.0, Urine Specific [place] 1.023, Urine Protein NEGATIVE, Urine Glucose (UA) NEGATIVE, Urine Ketones TRACEH, Urine Blood NEGATIVE, Urine Nitrite NEGATIVE, Urine Bilirubin 2+H, Urine Urobilinogen 4.0H, Urine Leukocyte Esterase NEGATIVE, Urine WBC (Auto) 1, Urine RBC (Auto) 1, Urine Hyaline Casts (Auto) 0, Urine Bacteria (Auto) 1+H, Urine Squamous Epithelial Cells 2, Urine Mucus (Auto) SMALL, Urine Sperm (Auto) , Urine Amphetamines Screen NEGATIVE, Urine Benzodiazepines Screen NEGATIVE, Urine Opiates Screen NEGATIVE, Urine Methadone Screen NEGATIVE, Urine Barbiturates Screen NEGATIVE, Urine Phencyclidine Screen NEGATIVE, Urine Cocaine Metabolite Screen NEGATIVE, Urine Cannabinoids Screen NEGATIVE 01/02/19 15:41: White Blood Count 10.1H, Red Blood Count 4.83, Hemoglobin 12.9, Hematocrit 38.7, Mean Corpuscular Volume 80.1, Mean Corpuscular Hemoglobin 26.7L, Mean Corpuscular Hemoglobin Concent 33.3, Red Cell Distribution Width 14.8H, Platelet Count 117L, Lymphocytes # (Auto) , Nucleated Red Blood Cells % (auto) 0.0, Neutrophils 30L, Lymphocytes (Manual) 39, Monocytes (Manual) 5, Eosinophils (Manual) 1, Atypical Lymphocytes 25H, Platelet Estimate DECREASED, Red Blood Cell Morphology NORMAL, Erythrocyte Sedimentation Rate 25H, Prothrombin Time 13.0, Prothromb Time International Ratio 0.97, Anion Gap 11, Glomerular Filtration Rate > 60.0, Blood Urea Nitrogen 15, Creatinine 0.77, Sodium Level 135L, Potassium Level 3.6, Chloride Level 96L, Carbon Dioxide Level 28, Calcium Level 8.8, Aspartate Amino Transf (AST/SGOT) 652H, Alanine Aminotransferase (ALT/SGPT) 2225H, Alkaline Phosphatase 296H, Total Bilirubin 11.9H, Total Protein 7.1, Albumin 3.0L, C-Reactive Protein, Quantitative 2.25H, Albumin/Globulin Ratio 0.73L, Amylase Level 12L, Lipase 78 01/02/19 18:18: 01/02/19 18:19: Lactic Acid Level 0.6 CBC/BMP Laboratory Tests 01/02/19 15:41 Red Blood Count 4.83, Mean Corpuscular Volume 80.1, Mean Corpuscular Hemoglobin 26.7 L, Mean Corpuscular Hemoglobin Concent 33.3, Red Cell Distribution Width 14.8 H, Lymphocytes # (Auto) , Calcium Level 8.8, Aspartate Amino Transf (AST/SGOT) 652 H, Alanine Aminotransferase (ALT/SGPT) 2225 H, Alkaline Phosphatase 296 H, Total Bilirubin 11.9 H, Total Protein 7.1, Albumin 3.0 L Microbiology Microbiology 01/02/19 Blood Culture, Received Pending 01/02/19 Blood Culture, Received Pending Allergies Coded Allergies: amoxicillin (Verified Allergy, Severe, anyphylaxis, 01/02/19) bee pollen (Verified Allergy, Unknown, 01/02/19) codeine (Verified Adverse Reaction, Unknown, VOMITING/MIGRAINE, 01/02/19) procaine (Verified Adverse Reaction, Unknown, VOMITING/MIGRAINE, 01/02/19) Home Medications Scheduled Buprenorphine HCl/Naloxone HCl (Suboxone 8 mg-2 mg Sl Film) 1 Mis Mis, 1.5 FILM SL DAILY, (Reported) Bupropion Hcl (Bupropion Xl) 150 Mg Tab, 150 MG PO DAILY, (Reported) Fluoxetine Hcl (Fluoxetine HCl) 10 Mg Capsule, 10 MG PO DAILY, (Reported) Omeprazole (Omeprazole) 20 Mg Capsule.dr, 20 MG PO DAILY, (Reported) Prazosin Hcl (Prazosin HCl) 1 Mg Cap, 2 MG PO QHS, (Reported) Scheduled PRN Ondansetron HCl (Ondansetron HCl) 4 Mg Tablet, 4 MG PO Q6H PRN for NAUSEA OR VOMITING, (Reported) RICKY EDWARDS MD Jan 02, 2019 21:10
[2019-01-02 23:59] VITALS: BP 118/61
[2019-01-03] VITALS (7 sets, daily range): BP systolic 108–133; BP diastolic 60–82
[2019-01-03 05:24] LABS: HEMATOCRIT 36.9 % (36.0-47.0); HEMOGLOBIN 12.3 g/dl (12.0-15.5); MEAN CORPUSCULAR HEMOGLOBIN 25.9 pg (27.0-33.0); MEAN CORPUSCULAR HGB CONC 33.3 g/dl (32.0-36.5); MEAN CORPUSCULAR VOLUME 77.7 fl (80.0-96.0); PLATELET COUNT, AUTOMATED 110 10^3/uL (150-450); RED BLOOD COUNT 4.75 10^6/uL (4.00-5.40)
[2019-01-03 05:57] LABS: ALBUMIN 2.6 GM/DL (3.2-5.2); ALT/SGPT 1630 U/L (12-78); BLOOD UREA NITROGEN 16 MG/DL (7-18); C REACTIVE PROTEIN QUANTITATIV 1.55 MG/DL (0.00-0.30); CALCIUM LEVEL 8.1 MG/DL (8.5-10.1); CARBON DIOXIDE LEVEL 28 MEQ/L (21-32); CHLORIDE LEVEL 99 MEQ/L (98-107); CREATININE FOR GFR 0.59 MG/DL (0.55-1.30); GLOMERULAR FILTRATION RATE > 60.0 (>60); GLUCOSE, FASTING 108 MG/DL (70-100); POTASSIUM SERUM 3.7 MEQ/L (3.5-5.1); SODIUM LEVEL 133 MEQ/L (136-145); TOTAL PROTEIN 6.5 GM/DL (6.4-8.2)
[2019-01-03 06:01] LABS: ERYTHROCYTE SEDIMENTATION RATE 24 mm/hr (0-20)
[2019-01-03 09:16] LABS: LDH LACTATE DEHYDROGENASE 282 U/L (84-246)
[2019-01-03] MEDS: BUPRENORPHINE/NALOXONE 8-2MG SUBLINGUAL TABLET(SUBOXONE) SL SCH (09:40)
[2019-01-03] MEDS: buPROPion **XL** TABLET 150MG (WELLBUTRIN XL) PO SCH (09:40)
--- NOTE | 2019-01-03 09:47 | REP ---
Visceral Doppler assessment of the liver: History: Abdominal pain. Acute hepatitis. Comparison is made with yesterday's right upper quadrant sonography. MRI scanning of the abdomen was performed January 02, 2019 as well. Sonographic findings: Normal direction of flow is seen in the splenic and portal and hepatic veins. There is slight loss of phasicity in the hepatic vein Doppler tracings. Peak systolic flow velocity in the hepatic artery is 131 cm/sec. Main portal vein is 14 mm in diameter and displays a venous velocity 35.9 cm/sec. Velocity in the splenic vein measures 19 cm/sec at the hilus and 34 cm/sec near the traci splenic venous confluence. Hepatosplenomegaly is observed. Impression: Normal flow and velocities in the portal venous system. Electronically Signed by Mal Brown MD 01/03/2019 03:04 P
--- NOTE | 2019-01-03 10:45 | IPNPDOC ---
Date Seen The patient was seen on 01/03/19. Progress Note SUBJECTIVE: Patient is a 33-year-old female with abdominal pain, nausea, and vomiting. Patient is evaluated at bedside this morning. She states that she had been experiencing abdominal pain, nausea, and vomiting since Sunday. She states that she was in outside in the sun and thinks she suffering from "sun stroke." She has a history of hepatitis C for which she has never received treatment. She says once in a while in flares up, but for the most part she does not even realize she has hepatitis C. She has not sought treatment because she is a single mother of two children and does not have the time. Currently, he abdominal pain, nausea, and vomiting are controlled. She denies fevers, night sweats, chills, chest pain, shortness of breath. OBJECTIVE PHYSICAL EXAMINATION: VITAL SIGNS: Please see below. GENERAL: Well nourished, well developed female, alert and conversant, answers questions appropriately, no acute distress. HEENT: Atraumatic, normocephalic, PERRL, EOMI, icteric sclera, oral mucosa appears pink and moist, nasal septum appears midline, nares are patent. CARDIOVASCULAR: Regular rate and rhythm, normal S1 and S2, no murmur, rub, click. RESPIRATORY: Clear to auscultation bilaterally, adequate inspiratory and expiratory airway excursion, symmetric airway excursion, no focal consolidations, no wheeze, rhonchi, crackles. ABDOMINAL: Round, soft, no guarding, no rebound, pain with palpation in the upper quadrants bilaterally, bowel sounds appreciated. EXTREMITIES: Warm, dry, feet are grubby, no clubbing, no cyanosis, peripheral pulses equal and symmetrical. SKIN: Jaundiced. NEUROLOGICAL: CN II-XII grossly intact. PSYCHOLOGICAL: Mood and affect appropriate. LABORATORY DATA, IMAGING STUDIES, MICROBIOLOGY: Please see below. 1. Gallbladder US - Significant hepatomegaly again observed with evidence of fatty infiltration. The gallbladder is distended and there is gallbladder wall thickening and some pericholecystic or intramural gallbladder wall fluid. No stone is seen. Common bile duct is normal in caliber. Findings are similar to the prior MRI study from February of 2017. 2. CT abdomen an d pelvis without contrast - Hepatomegaly. There is moderate splenomegaly with a maximum span of 15 centimeters. No focal abnormalities de monstrated. Small retroperitoneal lymph nodes of uncertain significance. 3. MRI abdomen without contrast - There is diffuse loss of hepatic signal on out of phase images in comparison to in phase images consistent with steatosis. No focal abnormalities demonstrated. Liver size is increased. Increased T2 weighted signal demonstrated in the periportal soft tissues, findings can be associated with acute hepatitis. There is moderate splenomegaly with a maximum span of 15 centimeters. No focal abnormalities demonstrated. Pericholecystic fluid. Gallbladder otherwise unremarkable. Clinical correlation to exclude acute gallbladder pathology suggested. 4. Visceral doppler assessment of liver - Normal flow and velocities in the portal venous system. DVT prophylaxis ordered?: TEDs, sequentials, activity as tolerated. ASSESSMENT AND PLAN: This is a 33-year-old female with abdominal pain, nausea, and vomiting found to have acute hepatitis. PROBLEMS: 1. Abdominal pain with nausea and vomiting 2/2 acute hepatitis 2/2 possible untreated hepatitis C Gastroenterology has been consulted NPO; advance diet as tolerated; IVF @ 100 mLs/hr Improving LFTs, LDH elevated Pending HCV RNA PCR Urine toxicology screen negative; serum toxicology ordered Avoid hepatotoxins C/W Zofran, Morphine 2. Depression C/W Fluoxetine and Bupropion 3. History of drug abuse C/W Buprenorphine Toxicology screen was negative DISPOSITION: Pending clinical improvement. I saw and evaluated the patient. I agree with the findings and plan of care as documented in the resident's note VS, I&O, 24H, Fishbone Vital Signs/I&O Vital Signs Date Time Temp Pulse Resp B/P (MAP) Pulse Ox O2 Delivery O2 Flow Rate FiO2 01/03/19 08:00 97.1 83 17 108/72 (84) 97 01/02/19 13:38 Room Air I&O- Last 24 Hours up to 6 AM 01/03/19 06:00 Intake Total 0 ml Output Total 100 ml Balance -100 ml Laboratory Data 24H LABS Laboratory Tests 2 01/02/19 14:08: Urine Color MARIUM, Urine Appearance HAZY, Urine pH 5.0, Urine Specific [place] 1.023, Urine Protein NEGATIVE, Urine Glucose (UA) NEGATIVE, Urine Ketones TRACEH, Urine Blood NEGATIVE, Urine Nitrite NEGATIVE, Urine Bilirubin 2+H, Urine Urobilinogen 4.0H, Urine Leukocyte Esterase NEGATIVE, Urine WBC (Auto) 1, Urine RBC (Auto) 1, Urine Hyaline Casts (Auto) 0, Urine Bacteria (Auto) 1+H, Urine Squamous Epithelial Cells 2, Urine Mucus (Auto) SMALL, Urine Sperm (Auto) , Urine Amphetamines Screen NEGATIVE, Urine Benzodiazepines Screen NEGATIVE, Urine Opiates Screen NEGATIVE, Urine Methadone Screen NEGATIVE, Urine Barbiturates Screen NEGATIVE, Urine Phencyclidine Screen NEGATIVE, Urine Cocaine Metabolite Screen NEGATIVE, Urine Cannabinoids Screen NEGATIVE 01/02/19 15:41: White Blood Count 10.1H, Red Blood Count 4.83, Hemoglobin 12.9, Hematocrit 38.7, Mean Corpuscular Volume 80.1, Mean Corpuscular Hemoglobin 26.7L, Mean Corpuscular Hemoglobin Concent 33.3, Red Cell Distribution Width 14.8H, Platelet Count 117L, Lymphocytes # (Auto) , Nucleated Red Blood Cells % (auto) 0.0, Neutrophils 30L, Lymphocytes (Manual) 39, Monocytes (Manual) 5, Eosinophils (Manual) 1, Atypical Lymphocytes 25H, Platelet Estimate DECREASED, Red Blood Cell Morphology NORMAL, Erythrocyte Sedimentation Rate 25H, Prothrombin Time 13.0, Prothromb Time International Ratio 0.97, Anion Gap 11, Glomerular Filtration Rate > 60.0, Blood Urea Nitrogen 15, Creatinine 0.77, Sodium Level 135L, Potassium Level 3.6, Chloride Level 96L, Carbon Dioxide Level 28, Calcium Level 8.8, Aspartate Amino Transf (AST/SGOT) 652H, Alanine Aminotransferase (ALT/SGPT) 2225H, Alkaline Phosphatase 296H, Total Bilirubin 11.9H, Total Protein 7.1, Albumin 3.0L, C-Reactive Protein, Quantitative 2.25H, Albumin/Glob ulin Ratio 0.73L, Amylase Level 12L, Lipase 78 01/02/19 18:18: 01/02/19 18:19: Lactic Acid Level 0.6 01/03/19 05:04: Nucleated Red Blood Cells % (auto) 0.0, Erythrocyte Sedimentation Rate 24H, Anion Gap 6L, Glomerular Filtration Rate > 60.0, Blood Urea Nitrogen 16, Creatinine 0.59, Sodium Level 133L, Potassium Level 3.7, Chloride Level 99, Carbon Dioxide Level 28, Calcium Level 8.1L, Aspartate Amino Transf (AST/SGOT) 358H, Alanine Aminotransferase (ALT/SGPT) 1630H, Lactate Dehydrogenase 282H, Alkaline Phosphatase 256H, Total Bilirubin 10.0H, Total Protein 6.5, Albumin 2.6L, C-Reactive Protein, Quantitative 1.55H, Albumin/Globulin Ratio 0.67L CBC/BMP Laboratory Tests 01/02/19 15:41 Red Blood Count 4.83, Mean Corpuscular Volume 80.1, Mean Corpuscular Hemoglobin 26.7 L, Mean Corpuscular Hemoglobin Concent 33.3, Red Cell Distribution Width 14.8 H, Lymphocytes # (Auto) , Calcium Level 8.8, Aspartate Amino Transf (AST/SGOT) 652 H, Alanine Aminotransferase (ALT/SGPT) 2225 H, Alkaline Phosphatase 296 H, Total Bilirubin 11.9 H, Total Protein 7.1, Albumin 3.0 L 01/03/19 05:04 Red Blood Count 4.75, Mean Corpuscular Volume 77.7 L, Mean Corpuscular Hemoglobin 25.9 L, Mean Corpuscular Hemoglobin Concent 33.3, Red Cell Distribution Width 14.8 H, Calcium Level 8.1 L, Aspartate Amino Transf (AST/SGOT) 358 H, Alanine Aminotransferase (ALT/SGPT) 1630 H, Alkaline Phosphatase 256 H, Total Bilirubin 10.0 H, Total Protein 6.5, Albumin 2.6 L, Lactate Dehydrogenase 282 H Microbiology Microbiology 01/02/19 Blood Culture, Received Pending 01/02/19 Blood Culture, Received Pending CASSIE BROWN DO Jan 03, 2019 10:45 NOY COATS MD Jan 04, 2019 16:47
[2019-01-03] MEDS: FLUoxetine 10 MG CAP PO SCH (11:47)
[2019-01-03] MEDS ORDERED: LIDOCAINE 1% MDV 20ML VIAL As Ordered ONE (13:34)
[2019-01-03] MEDS: PANTOPRAZOLE 40MG INJ (PROTONIX) (C9113) IV SCH ×2 (14:37→20:38)
[2019-01-03] MEDS: NS 1,000 ML IV SCH (14:37)
[2019-01-03] MEDS ORDERED: SODIUM CHLORIDE 0.9% INJ 10 ML SYR IV PRN (16:15)
--- NOTE | 2019-01-03 17:02 | REP ---
Procedure: PICC line insertion with Faustino The procedure was performed under the direct supervision of Dr. Brown. The risks and benefits of the procedure were explained to the patient and informed consent was obtained. The right basilic vein was localized using ultrasound guidance. The skin was prepped and draped in a sterile fashion. 2% lidocaine was used as a local anesthetic. Using ultrasound guidance the basilic vein was cannulated and a 0.018 guidewire was inserted and advanced to the SVC using fluoroscopic guidance. The needle was removed and a 5.5 Beninese dilator and peel-away sheath was inserted over the guide wire. A 5.5 Beninese dual lumen catheter was cut to length of 38 cm. The dilator was removed and the catheter was inserted over the guide wire with the tip ending in the SVC. The peel-away sheath was removed and the catheter was flushed with heparinized saline as per Hospital protocol. The catheter was affixed to the skin and a sterile dressing was applied. The patient tolerated the procedure well and there were no immediate complications. 0.2 minutes of fluoro time was utilized for this procedure. Reviewed by BEV Onofre 01/03/2019 03:50 P Electronically Signed by Mal Brown MD 01/03/2019 04:54 P
[2019-01-03] MEDS: SODIUM CHLORIDE 0.9% INJ 10 ML SYR IV SCH (18:20)
[2019-01-03] MEDS: PRAZOSIN 1 MG CAP PO SCH (20:38)
[2019-01-04] MEDS: NS 1,000 ML IV SCH ×2 (00:26→09:26)
[2019-01-04 03:57] VITALS: BP 93/53
[2019-01-04] MEDS: SODIUM CHLORIDE 0.9% INJ 10 ML SYR IV SCH (05:26)
[2019-01-04 05:32] LABS: HEMATOCRIT 31.8 % (36.0-47.0); HEMOGLOBIN 10.4 g/dl (12.0-15.5); MEAN CORPUSCULAR HEMOGLOBIN 26.5 pg (27.0-33.0); MEAN CORPUSCULAR HGB CONC 32.7 g/dl (32.0-36.5); MEAN CORPUSCULAR VOLUME 81.1 fl (80.0-96.0); PLATELET COUNT, AUTOMATED 101 10^3/uL (150-450); RED BLOOD COUNT 3.92 10^6/uL (4.00-5.40); WHITE BLOOD COUNT 8.2 10^3/uL (4.0-10.0)
[2019-01-04 05:50] LABS: ERYTHROCYTE SEDIMENTATION RATE 23 mm/hr (0-20); INR 1.07
[2019-01-04 06:11] LABS: ALBUMIN 2.3 GM/DL (3.2-5.2); ALT/SGPT 859 U/L (12-78); BILIRUBIN,TOTAL 4.4 MG/DL (0.2-1.0); BLOOD UREA NITROGEN 11 MG/DL (7-18); C REACTIVE PROTEIN QUANTITATIV 0.63 MG/DL (0.00-0.30); CARBON DIOXIDE LEVEL 28 MEQ/L (21-32); CHLORIDE LEVEL 104 MEQ/L (98-107); CREATININE FOR GFR 0.59 MG/DL (0.55-1.30); GLOMERULAR FILTRATION RATE > 60.0 (>60); GLUCOSE, FASTING 104 MG/DL (70-100); POTASSIUM SERUM 3.1 MEQ/L (3.5-5.1); SODIUM LEVEL 137 MEQ/L (136-145); TOTAL PROTEIN 5.6 GM/DL (6.4-8.2)
[2019-01-04] MEDS ORDERED: POTASSIUM CHLORIDE 10 MEQ SR TABLET PO ONE (08:00)
[2019-01-04 08:01] VITALS: BP 98/59
[2019-01-04] MEDS: buPROPion **XL** TABLET 150MG (WELLBUTRIN XL) PO SCH (09:24)
[2019-01-04] MEDS: BUPRENORPHINE/NALOXONE 8-2MG SUBLINGUAL TABLET(SUBOXONE) SL SCH (09:24)
[2019-01-04] MEDS: PANTOPRAZOLE 40MG INJ (PROTONIX) (C9113) IV SCH (09:24)
[2019-01-04] MEDS: FLUoxetine 10 MG CAP PO SCH (10:27)
--- NOTE | 2019-01-04 12:34 | DS.PDOC ---
Discharge Summary General Date of Admission Jan 02, 2019 at 17:51 Date of Discharge 01/04/2019 Primary Care Physician: NEHEMIAH CLANCY PA-C Attending Physician: NOY COATS MD Specialist/Consultants Involve: RICKY EDWARDS MD Discharge Summary PROCEDURES PERFORMED DURING STAY: 1. PICC line placement with Site-Radhae. ADMITTING DIAGNOSES: 1. Left lower quadrant pain. 2. Thrombocytopenia. 3. Elevated live function tests. 4. History of substance abuse. 5. Gastroesophageal reflux disease. DISCHARGE DIAGNOSES: 1. Abdominal pain with nausea and vomiting secondary to acute hepatitis from chronic hepatitis C. 2. Depression. 3. History of drug abuse. 4. Thrombocytopenia. 5. Transaminitis. 6. Hypokalemia. COMPLICATIONS/CHIEF COMPLAINT: Abdominal Pain. HISTORY OF PRESENT ILLNESS: Ms. Regan is a 33-year-old female with a history of hepatitis C known to her for many years. She was in the state of her usual health when on Sunday she was out in the sun all day doing yard work the next day she began to have left upper quadrant abdominal pain associated with intermittent vomiting no blood. Worsened by food achy in nature that came and went but progressively worsened to the point that it stayed. She did present to urgent care yesterday was provided Zofran and had no further vomiting but had persistence of pain and awoke this morning with yellow when her eyes. She states that 2 years ago she was admitted here at [facility] with yellow in her eyes and was in liver failure at that time. She was seen by GI at that time and to follow-up outpatient but never received any treatment for her hepatitis C due to her noncompliance self-admittedly.. Otherwise patient denies weight loss, hair loss, headache, visual changes, chest pain, shortness of breath, cough, muscle aches, worsening arthritis, change in mood HOSPITAL COURSE: Patient was admitted. PICC line was ordered and placed due to poor peripheral access. Gastroenterology was consulted. Patient was made NPO. Respiratory panel was ordered as patient admitted to fever and chills. Normal saline infused as patient appeared somewhat dehydrated. Obtained urine and serum toxicology, LDH, HCV RNA PCR, monitored INR. Patient improved clinically and was stable at time of discharge. DISCHARGE MEDICATIONS: Please see below. ALLERGIES: Please see below. PHYSICAL EXAMINATION ON DISCHARGE: VITAL SIGNS: Please see below. GENERAL: Well nourished, well developed female, alert and conversant, answers questions appropriately, no acute distress. HEENT: Atraumatic, normocephalic, PERRL, EOMI, icteric sclera, oral mucosa appears pink and moist, nasal septum appears midline, nares are patent. CARDIOVASCULAR: Regular rate and rhythm, normal S1 and S2, no murmur, rub, click. RESPIRATORY: Clear to auscultation bilaterally, adequate inspiratory and e xpiratory airway excursion, symmetric airway excursion, no focal consolidations, no wheeze, rhonchi, crackles. ABDOMINAL: Round, soft, no guarding, no rebound, no pain with palpation in the upper quadrants bilaterally, bowel sounds appreciated. EXTREMITIES: Warm, dry, no clubbing, no cyanosis, peripheral pulses equal and symmetrical. SKIN: Jaundiced, improving. NEUROLOGICAL: CN II-XII grossly intact. PSYCHOLOGICAL: Mood and affect appropriate. LABORATORY DATA: Please see below. IMAGIN. Gallbladder US - Significant hepatomegaly again observed with evidence of fatty infiltration. The gallbladder is distended and there is gallbladder wall thickening and some pericholecystic or intramural gallbladder wall fluid. No stone is seen. Common bile duct is normal in caliber. Findings are similar to the prior MRI study from February of 2017. 2. CT abdomen and pelvis without contrast - Hepatomegaly. There is moderate splenomegaly with a maximum span of 15 centimeters. No focal abnormalities demonstrated. Small retroperitoneal lymph nodes of uncertain significance. 3. MRI abdomen without contrast - There is diffuse loss of hepatic signal on out of phase images in comparison to in phase images consistent with steatosis. No focal abnormalities demonstrated. Liver size is increased. Increased T2 weighted signal demonstrated in the periportal soft tissues, findings can be associated w ith acute hepatitis. There is moderate splenomegaly with a maximum span of 15 centimeters. No focal abnormalities demonstrated. Pericholecystic fluid. Gallbladder otherwise unremarkable. Clinical correlation to exclude acute gallbladder pathology suggested. 4. Visceral Doppler assessment of the liver - Normal flow and velocities in the portal venous system. PROGNOSIS: Stable. ACTIVITY: As tolerated. DIET: As tolerated. DISCHARGE PLAN: Home. DISPOSITION: Home. DISCHARGE INSTRUCTIONS: 1. Dr. Edwards in 2-3 weeks, call for appointment. 2. Take all medications as prescribed. 3. Avoid hepatotoxic medications, like Tylenol. 4. Return to the nearest Emergency Department should you symptoms worsen or persist. ITEMS TO FOLLOWUP ON ON OUTPATIENT: 1. Hepatitis C. DISCHARGE CONDITION: Stable. I saw and evaluated the patient. I agree with the findings and plan of care as documented in the resident's note. I spent 45 minutes coordinating this patie nt's discharge. Vital Signs/I&Os Vital Signs Date Time Temp Pulse Resp B/P (MAP) Pulse Ox O2 Delivery O2 Flow Rate FiO2 01/04/19 08:01 97.2 69 18 98/59 (72) 96 01/02/19 13:38 Room Air I&O- Last 24 Hours up to 6 AM 01/04/19 06:00 Intake Total 1450 ml Output Total 1250 ml Balance 200 ml Laboratory Data Labs 24H Laboratory Tests 2 01/04/19 05:17: Nucleated Red Blood Cells % (auto) 0.0, Erythrocyte Sedimentation Rate 23H, Prothrombin Time 14.0, Prothromb Time International Ratio 1.07, Anion Gap 5L, Glomerular Filtration Rate > 60.0, Blood Urea Nitrogen 11, Creatinine 0.59, Sodium Level 137, Potassium Level 3.1L, Chloride Level 104, Carbon Dioxide Level 28, Calcium Level 7.0L, Aspartate Amino Transf (AST/SGOT) 131H, Alanine Aminotransferase (ALT/SGPT) 859H, Alkaline Phosphatase 189H, Total Bilirubin 4.4#H, Total Protein 5.6L, Albumin 2.3L, C-Reactive Protein, Quantitative 0.63H, Albumin/Globulin Ratio 0.70L CBC/BMP Laboratory Tests 01/04/19 05:17 Red Blood Count 3.92 L, Mean Corpuscular Volume 81.1, Mean Corpuscular Hemoglobin 26.5 L, Mean Corpuscular Hemoglobin Concent 32.7, Red Cell Distribution Width 15.6 H, Calcium Level 7.0 L, Aspartate Amino Transf (AST/SGOT) 131 H, Alanine Aminotransferase (ALT/SGPT) 859 H, Alkaline Phosphatase 189 H, Total Bilirubin 4.4 #H, Total Protein 5.6 L, Albumin 2.3 L Microbiology Microbiology 01/02/19 Blood Culture - Preliminary, Resulted No growth after 24 hours . All specim... 01/02/19 Blood Culture - Preliminary, Resulted No growth after 24 hours . All specim... Discharge Medications Scheduled Buprenorphine HCl/Naloxone HCl (Suboxone 8 mg-2 mg Sl Film) 1 Mis Mis, 1.5 FILM SL DAILY, (Reported) Bupropion Hcl (Bupropion Xl) 150 Mg Tab, 150 MG PO DAILY, (Reported) Fluoxetine Hcl (Fluoxetine HCl) 10 Mg Capsule, 10 MG PO DAILY, (Reported) Omeprazole (Omeprazole) 20 Mg Capsule.dr, 20 MG PO DAILY, (Reported) Prazosin Hcl (Prazosin HCl) 1 Mg Cap, 2 MG PO QHS, (Reported) Scheduled PRN Ondansetron HCl (Ondansetron HCl) 4 Mg Tablet, 4 MG PO Q6H PRN for NAUSEA OR VOMITING, (Reported) Allergies Coded Allergies: amoxicillin (Verified Allergy, Severe, anyphylaxis, 01/02/19) bee pollen (Verified Allergy, Unknown, 01/02/19) codeine (Verified Adverse Reaction, Unknown, VOMITING/MIGRAINE, 01/02/19) procaine (Verified Adverse Reaction, Unknown, VOMITING/MIGRAINE, 01/02/19) CASSIE BROWN DO Jan 04, 2019 12:34 NOY COATS MD Jan 04, 2019 16:57
[2019-01-06 14:43] LABS: HEPATITIS C QUANTITATION 116770 IU/mL (.)
== END 2019-01-04 13:21 | disposition home or self-care (01) ==
LOC: M ED 13:37 → M ED INP 17:51 → M PCU 20:23
PROVIDERS: ADMIT Internal Medicine; ATTEND Internal Medicine
PROC: 02HV33Z Insertion of Infusion Device into Superior Vena Cava, Percutaneous Approach (ICD-10-PCS; principal; 2019-01-03)
DX: B17.10 Acute hepatitis C without hepatic coma (principal); D69.6 Thrombocytopenia, unspecified; F43.10 Post-traumatic stress disorder, unspecified; F32.9 Major depressive disorder, single episode, unspecified; K21.9 Gastro-esophageal reflux disease without esophagitis; B18.2 Chronic viral hepatitis C; F17.200 Nicotine dependence, unspecified, uncomplicated; F10.21 Alcohol dependence, in remission; Z81.1 Family history of alcohol abuse and dependence; Z79.899 Other long term (current) drug therapy; Z88.0 Allergy status to penicillin; Z88.5 Allergy status to narcotic agent; Z88.8 Allergy status to other drugs, medicaments and biological substances; Z91.030 Bee allergy status

== ENCOUNTER → 2019-01-09 | Outpatient (REF) | payer OTHER ==
[~2019-01-09] MED LIST changes: +FLUO10CA8 PO; +OMEP-218 PO; +ONDA4TAB5 PO
== END ==
LOC: M SFHCCAPE 11:33
PROVIDERS: ATTEND Physician Assistant
DX: Z53.9 Procedure and treatment not carried out, unspecified reason (principal); B17.10 Acute hepatitis C without hepatic coma

== ENCOUNTER → 2019-01-09 | Outpatient (CLI) | payer OTHER ==
[2019-01-09 13:58] LABS: HEMATOCRIT 37.6 % (36.0-47.0); HEMOGLOBIN 11.9 g/dl (12.0-15.5); MEAN CORPUSCULAR HEMOGLOBIN 26.4 pg (27.0-33.0); MEAN CORPUSCULAR HGB CONC 31.6 g/dl (32.0-36.5); MEAN CORPUSCULAR VOLUME 83.4 fl (80.0-96.0); PLATELET COUNT, AUTOMATED 292 10^3/uL (150-450); RED BLOOD COUNT 4.51 10^6/uL (4.00-5.40); WHITE BLOOD COUNT 8.4 10^3/uL (4.0-10.0)
[2019-01-09 14:20] LABS: ALBUMIN 3.1 GM/DL (3.2-5.2); ALT/SGPT 208 U/L (12-78); BILIRUBIN,DIRECT 1.1 MG/DL (0.0-0.2); BILIRUBIN,TOTAL 1.2 MG/DL (0.2-1.0); BLOOD UREA NITROGEN 8 MG/DL (7-18); CARBON DIOXIDE LEVEL 31 MEQ/L (21-32); CHLORIDE LEVEL 104 MEQ/L (98-107); CREATININE FOR GFR 0.65 MG/DL (0.55-1.30); GLOMERULAR FILTRATION RATE > 60.0 (>60); GLUCOSE, FASTING 139 MG/DL (70-100); POTASSIUM SERUM 4.4 MEQ/L (3.5-5.1); SODIUM LEVEL 140 MEQ/L (136-145); TOTAL PROTEIN 7.3 GM/DL (6.4-8.2)
[2019-01-09 14:24] LABS: ANISOCYTOSIS 1+; EOSINOPHILS 2 % (0-5); LYMPHOCYTES 62 % (16-52); MONOCYTES 6 % (0-8); NEUTROPHILS 30 % (35-75); PLATELET ESTIMATE NORMAL (NORMAL)
== END ==
LOC: M LAB 13:27
PROVIDERS: ATTEND Physician Assistant
DX: B17.10 Acute hepatitis C without hepatic coma (principal)

== ENCOUNTER → 2019-04-17 | Outpatient (CLI) | payer OTHER ==
[~2019-04-17] MED LIST changes: +FLUO10CA15 PO; -FLUO10CA8 PO; +MULTCAP PO; +ONDA-83 PO; -ONDA4TAB5 PO; +VITA50005 PO
[2019-04-17 16:45] LABS: BASO % 0.3 % (0.0-1.0); EOS # 0.1 10^3/uL (0.0-0.5); HEMATOCRIT 38.1 % (36.0-47.0); HEMOGLOBIN 12.6 g/dl (12.0-15.5); LYMPH # 3.1 10^3/uL (1.5-5.0); LYMPH % 45.5 % (24.0-44.0); MEAN CORPUSCULAR HEMOGLOBIN 26.3 pg (27.0-33.0); MEAN CORPUSCULAR HGB CONC 33.1 g/dl (32.0-36.5); MEAN CORPUSCULAR VOLUME 79.5 fl (80.0-96.0); MONO # 0.6 10^3/uL (0.0-0.8); MONO % 8.2 % (0.0-5.0); NEUTROPHILS % 43.9 % (36.0-66.0); PLATELET COUNT, AUTOMATED 255 10^3/uL (150-450); RED BLOOD COUNT 4.79 10^6/uL (4.00-5.40); WHITE BLOOD COUNT 6.8 10^3/uL (4.0-10.0)
[2019-04-17 17:04] LABS: ALT/SGPT 37 U/L (12-78); BILIRUBIN,DIRECT 0.1 MG/DL (0.0-0.2); BILIRUBIN,TOTAL 0.4 MG/DL (0.2-1.0); BLOOD UREA NITROGEN 14 MG/DL (7-18); CALCIUM LEVEL 9.6 MG/DL (8.5-10.1); CARBON DIOXIDE LEVEL 31 MEQ/L (21-32); CHLORIDE LEVEL 105 MEQ/L (98-107); CREATININE FOR GFR 0.78 MG/DL (0.55-1.30); GLOMERULAR FILTRATION RATE > 60.0 (>60); GLUCOSE, FASTING 93 MG/DL (70-100); POTASSIUM SERUM 4.2 MEQ/L (3.5-5.1); SODIUM LEVEL 141 MEQ/L (136-145); TOTAL PROTEIN 7.9 GM/DL (6.4-8.2)
== END ==
LOC: M LAB 15:46
PROVIDERS: ATTEND Internal Medicine Gastroenterology
DX: B18.2 Chronic viral hepatitis C (principal)

== ENCOUNTER 2019-05-05 12:18 | Day surgery (SDC) | payer OTHER ==
[~2019-05-05] VITALS: Ht 165.1 cm; Wt 99.8 kg
[~2019-05-05 12:18] MED LIST changes: -FLUO10CA15 PO; +FLUO10CA8 PO; +NS 1,000 ML IV SCH; -ONDA-83 PO; +ONDA4TAB5 PO
[2019-05-05] MEDS ORDERED: PROPOFOL 200 MG/20 ML VIAL As Ordered ONE (13:46)
[2019-05-05] MEDS ORDERED: LIDOCAINE 2% INJ 100 MG/5 ML SDV (FOR ANES.) As Ordered ONE (13:46)
--- NOTE | 2019-05-05 13:49 | ROOR ---
Patient Name: Huma Regan Procedure Date: 05/05/2019 1:13 PM Date of : 1985 Age: 33 Room: [facility] Gender: Female Note Status: Finalized Procedure: Upper GI endoscopy Indications: Hepatitis rule out esophageal varices Providers: Dharmesh Mack MD Referring MD: PEREZ Overton pa-c Requesting Provider: Medicines: Monitored Anesthesia Care Complications: No immediate complications. Procedure: Pre-Anesthesia Assessment: - Prior to the procedure, a History and Physical was performed, and patient medications and allergies were reviewed. The patient is competent. The risks and benefits of the procedure and the sedation options and risks were discussed with the patient. All questions were answered and informed consent was obtained. Patient identification and proposed procedure were verified by the physician, the nurse and the anesthesiologist in the procedure room. Mental Status Examination: alert and oriented. Prophylactic Antibiotics: The patient does not require prophylactic antibiotics. Prior Anticoagulants: The patient has taken no previous anticoagulant or antiplatelet agents. After reviewing the risks and benefits, the patient was deemed in satisfactory condition to undergo the procedure. The anesthesia plan was to use monitored anesthesia care (MAC). Immediately prior to administration of medications, the patient was re-assessed for adequacy to receive sedatives. The heart rate, respiratory rate, oxygen saturations, blood pressure, adequacy of pulmonary ventilation, and response to care were monitored throughout the procedure. The physical status of the patient was re-assessed after the procedure. The Endoscope was introduced through the mouth, and advanced to the second part of duodenum. The upper GI endoscopy was accomplished without difficulty. The patient tolerated the procedure well. Findings: The examined esophagus was normal. The Z-line was regular and was found 39 cm from the incisors. Scattered mild inflammation characterized by erythema and granularity was found in the gastric antrum. Biopsies were taken with a cold forceps for Helicobacter pylori testing. Verification of patient identification for the specimen was done by the physician and nurse using the patient's name, date and medical record number. The duodenal bulb and second portion of the duodenum were normal. Impression: - Normal esophagus. - Z-line regular, 39 cm from the incisors. - Gastritis. Biopsied. - Normal duodenal bulb and second portion of the duodenum. Recommendation: - Patient has a contact number available for emergencies. The signs and symptoms of potential delayed complications were discussed with the patient. Return to normal activities tomorrow. Written discharge instructions were provided to the patient. - High fiber diet. - Continue present medications. - Await pathology results. - Telephone GI clinic for pathology results in 2 weeks. - Return to primary care physician. Dharmesh Mack MD Dharmesh Mack MD 05/05/2019 1:48:55 PM Electronically signed by Dharmesh Mack MD Number of Addenda: 0 Note Initiated On: 05/05/2019 1:13 PM Estimated Blood Loss: Estimated blood loss was minimal.
[2019-05-05 14:05] VITALS: BP 120/72
== END 2019-05-05 14:12 | disposition home or self-care (01) ==
LOC: M OPP 12:18
PROVIDERS: ATTEND Internal Medicine Gastroenterology
DX: K29.70 Gastritis, unspecified, without bleeding (principal); B18.2 Chronic viral hepatitis C; R74.8 Abnormal levels of other serum enzymes; Z79.891 Long term (current) use of opiate analgesic; Z79.899 Other long term (current) drug therapy; Z88.0 Allergy status to penicillin; Z88.5 Allergy status to narcotic agent; Z88.8 Allergy status to other drugs, medicaments and biological substances; Z91.030 Bee allergy status; F17.210 Nicotine dependence, cigarettes, uncomplicated

== ENCOUNTER → 2020-07-24 | Outpatient (CLI) | payer SELFPAY ==
[~2020-07-24] MED LIST changes: +FLUO10CA16 PO; -FLUO10CA8 PO; -NS 1,000 ML IV SCH; +ONDA-83 PO; -ONDA4TAB5 PO
== END ==
LOC: M LABSMTC 11:43
PROVIDERS: ATTEND Pediatrics
DX: Z20.828 Contact with and (suspected) exposure to other viral communicable diseases (principal)

== ENCOUNTER 2021-05-30 12:03 | Emergency (ER) | payer BC, MEDICAID ==
[~2021-05-30] VITALS: Ht 165.1 cm; Wt 95.5 kg
[2021-05-30 12:03] VITALS: BP 119/67
[~2021-05-30 12:03] MED LIST changes: +BUPR150T12 PO; -BUPR150T3 PO; +DOXY-443 PO; -DOXY100C37 PO
--- OUTSIDE RECORDS SUMMARY | 2021-05-30 12:10 | CCD ---
Author Author [facility] Organization [facility] Address Unknown Phone Unavailable Care Team Providers Care Crap Shooter Name Role Phone Maring, Zan PA Unavailable Unavailable Maring, Zan PA Unavailable Unavailable Maring, Zan PA Unavailable Unavailable Maring, Zan PA Unavailable Unavailable Maring, Zan PA Unavailable Unavailable Maring, Zan PA Unavailable Unavailable Maring, Zan PA Unavailable Unavailable Maring, Zan PA Unavailable Unavailable Maring, Zan PA Unavailable Unavailable Maring, Zan PA Unavailable Unavailable Maring, Zan PA Unavailable Unavailable Maring, Zan PA Unavailable Unavailable Maring, Zan PA Unavailable Unavailable Maring, Zan PA Unavailable Unavailable Maring, Zan PA Unavailable Unavailable Maring, Zan PA Unavailable Unavailable Re-disclosure Warning The records that you are about to access may contain information from federally-assisted alcohol or drug abuse programs. If such information is present, then the following federally mandated warning applies: This information has been disclosed to you from records protected by federal confidentiality rules (42 CFR part 2). The federal rules prohibit you from making any further disclosure of this information unless further disclosure is expressly permitted by the written consent of the person to whom it pertains or as otherwise permitted by 42 CFR part 2. A general authorization for the release of medical or other information is NOT sufficient for this purpose. The Federal rules restrict any use of the information to criminally investigate or prosecute any alcohol or drug abuse patient.The records that you are about to access may contain highly sensitive health information, the redisclosure of which is protected by Article 27-F of the [facility] Public Health law. If you continue you may have access to information: Regarding HIV / AIDS; Provided by facilities licensed or operated by the [facility] Office of Mental Health; or Provided by the [facility] Office for People With Developmental Disabilities. If such information is present, then the following [facility] mandated warning applies: This information has been disclosed to you from confidential records which are protected by state law. State law prohibits you from making any further disclosure of this information without the specific written consent of the person to whom it pertains, or as otherwise permitted by law. Any unauthorized further disclosure in violation of state law may result in a fine or custodial sentence or both. A general authorization for the release of medical or other information is NOT sufficient authorization for further disc losure. Family History Family Member Name Family Member Gender Family Member Status Date o f Status Description Data Source(s) Unknown Unknown Problem MEDENT ([facility], ) MGF Unknown Female Problem MEDENT ([facility]) Unknown Unknown Problem MEDENT (Jose Manuel Parikh MD, ) Encounters Encounter Providers Location Date Indications Data Source(s ) Outpatient Attender: Zan TODD 05/04/20 04:12:38 PM EDT - 05/04/2021 05:54:45 PM EDT [facility] ([facility] ) Office Visit, Est Pt., Level 3 PC [address] [place] [address] 06/15/2020 12:00:00 AM EST eCW1 ([facility]) Unknown [address] [facility], [facility] [address] 05/10/2020 12:00:00 AM EDT eCW1 ([facility]) Immunizations Vaccine Date Status Description Data Source(s) influenza, recombinant, quadrIvalent,injectable, prese rvative free 06/15/2020 04:54:00 PM EST completed eCW1 ([facility]) Medications No Information Insurance Providers Payer name Policy type / Coverage type Policy ID Covered constitution party ID Covered constitution party's relationship to dye Policy Dye Plan Information EXCELLUS I [id number] Self [id number] MEDICAID M [id number] Self [id number] [facility] I [id number] Self [id number] MEDICAID M [id number] Self [id number] [employer]HC COMMUNITY PLAN MCDHMO [id number] SP [id number] UNHC COMMUNITY PLAN MCDHMO [id number] SP [id number] UNHC COMMUNITY PLAN MCDHMO [id number] SP [id number] UNHC COMMUNITY PLAN MCDO [id number] SP [id number] ESCREEN [employer]ATIONAL ACCOUNT emp [id number] Employee [id number] [employer] Blue Cross/Blue Shield [id number] Self [id number] ANSI-Medicaid [id number] ANSI-Medicaid [id number] ANSI-Medicaid [id number] ANSI-Medicaid [id number] ANSI-Medicaid [id number] [facility] [id number] SP [id number] [facility] Health Maintenance Organization (HMO) [id number] Self [id number] [facility] Community Plan Health Maintenance Organization (HMO) [id number] Self [employer](MCAID) O [id number] S [id number] MEDICAID [id number] SP [id number] MEDICAID M [id number] S [id number] [facility] Community Plan Health Maintenance Organization (HMO) [id number] Self MEDICAID W [id number] MEDICAID W [id number] HMO BLUE OPTION W [id number] S V [id number] HMO BLUE OPTION W [id number] S [id number] MEDICAID GME W [id number] S [id number] N HMO BLUE OPTION W [id number] S [id number] BLUE CHOICE OPTN FHP O [id number] S [id number] BLUE CROSS [employer] PLAN [id number] SP [id number] HMO BLUE [id number] SP [id number] [facility] [id number] SP [id number] SELF PAY ONLY [id number] SP [id number] [facility] COMMUN[facility] PLAN [facility] [id number] SP [id number] ANSI-Medicaid [id number] ANSI-Medicaid [id number] ANSI-Medicaid [id number] ANSI-Medicaid [id number] UNITED HEALTHCARE(MCAID) O [id number] S [id number] [facility]-Medicaid [id number] [facility]-Medicaid [id number] Problems, Conditions, and Diagnoses Code Display Name Description Problem Type Effective Dates Data Source(s) B18.2 758839964 Chronic hepatitis C without hepatic coma Problem 06/15/2020 12:00:00 AM EST eCW1 ([facility]) N92.1 [id number] Menorrhagia with irregular cycle Problem 06/15/2020 12:00:00 AM EST eCW1 ([facility]) Surgeries/Procedures Procedure Description Date Indications Data Source(s) Immunization: Flublok Quadrivalent (18 years & older) 0.5mL IM (Influenza) 06/15/2020 12:00:00 AM EST eCW1 ([facility]) Results ID Date Data Source [id number] 05/04/2021 04:30:00 PM EDT [facility] Name Value Range Interpretation Code Description Data Brenda rce(s) Supporting Document(s) SARS-CoV-2 RNA Resp Ql RYAN+probe NOT DETECTED [facility] This lab was ordered by WALE jacome and reported by WALE Wong. ID Date Data Source [id number] 07/24/2020 12:00:00 AM EST [facility] Name Value Range Interpretation Code Description Data Brenda rce(s) Supporting Document(s) SARS-CoV-2 (COVID-19) RNA [Presence] in Respiratory specimen by RYAN with probe detection [facility] This lab was ordered by [facility] and reported by [employer]. Procedure Social History Code Duration Value Status Description Data Source(s ) Smoking 06/15/2020 12:00:00 AM EST Current Smoker completed Curre nt Smoker eCW1 ([facility]) Vital Signs ID Date Data Source UNK Name Value Range Interpretation Code Description Data Source(s) Body weight [lb_av] eCW1 ([facility]) Body height 64.25 [in_i] 64.25 [in_i] eCW1 ([facility]) Body mass index (BMI) [Ratio] 36.10 kg/m2 36.10 kg/m2 eCW1 ([facility]) Heart rate 79 /min 79 /min eCW1 ([facility]) Respiratory rate 18 /min 18 /min eCW1 ([facility]) Body temperature 97.5 [degF] 97.5 [degF] eCW1 ( [facility]) Systolic blood pressure 123 mm[Hg] 123 mm[Hg] e CW1 ([facility]) Diastolic blood pressure 81 mm[Hg] 81 mm[Hg] eCW1 ([facility])
--- NOTE | 2021-05-30 13:38 | REP ---
INDICATION: pain COMPARISON: None. TECHNIQUE: Four views left foot. Study is performed at 12:10 p.m. and is submitted for interpretation at approximately 1:26 p.m.. FINDINGS: There is no evidence of acute fracture, dislocation, or intrinsic bone disease.There is mild posterior and inferior calcaneal spurring. A metallic plate and multiple metallic screws are seen in the distal fibula. IMPRESSION: No fracture or dislocation. <Electronically signed by Spencer Venegas > 05/30/21 0720
--- OUTSIDE RECORDS SUMMARY | 2021-05-30 15:48 | CCD ---
Author Author [facility] Organization [facility] Address Unknown Phone Unavailable Care Team Providers Care City Bailiff Name Role Phone Maring, Zan PA Unavailable [...] is protected by Article 27-F of the [facility] Public Health law. If you continue you may have access to information: Regarding HIV / AIDS; Provided by facilities licensed or operated by the [facility] Office of Mental Health; or Provided by the [facility] Office for People With Developmental Disabilities. If such information is present, then the following [facility] mandated warning applies: This information has been [...] law may result in a fine or shelter sentence or both. A general authorization for the release of medical or other information is NOT sufficient authorization for further disc losure. Family History Family Member Name Family Member Gender Family Member Status Date o f Status Description Data Source(s) Unknown Unknown Problem MEDENT ([facility], ) MGF Unknown Female Problem MEDENT ([facility]) Unknown Unknown Problem MEDENT (Jose Manuel Parikh MD, ) Encounters Encounter Providers Location Date Indications Data Source(s ) Outpatient Attender: Zan TODD 05/04/20 04:12:38 PM EDT - 05/04/2021 05:54:45 PM EDT Doc[facility]ap ([facility] ) Office Visit, Est Pt., Level 3 PC [address] [place] [address] 06/15/2020 12:00:00 AM EST eCW1 ([facility]) Unknown [address] [facility], [facility] [address] 05/10/2020 12:00:00 AM EDT eCW1 ([facility]) Immunizations Vaccine Date Status Description Data Source(s) influenza, recombinant, quadrIvalent,injectable, prese rvative free 06/15/2020 04:54:00 PM EST completed eCW1 ([facility]) Medications No Information Insurance Providers Payer name Policy type / Coverage type Policy ID Covered green party ID Covered green party's relationship to dye Policy Dye Plan Information EXCELLUS I [id number] Self [id number] MEDICAID M [id number] Self [id number] [facility] I [id number] Self [id number] MEDICAID M [id number] Self [id number] [employer]HC COMMUNITY PLAN MCDHMO [id number] SP [id number] UNHC COMMUNITY PLAN MCDHMO [id number] SP [id number] UNHC COMMUNITY PLAN MCDHMO [id number] SP [id number] UNHC COMMUNITY PLAN MCDO [id number] SP [id number] [employer] emp [id number] Employee [id number] [employer] Blue Cross/Blue Shield [id number] Self [id number] ANSI-Medicaid [id number] ANSI-Medicaid [id number] ANSI-Medicaid [id number] ANSI-Medicaid [id number] ANSI-Medicaid [id number] [facility] [id number] SP [id number] [facility] Health Maintenance Organization (HMO) [id number] Self [id number] [facility] Health Maintenance Organization (HMO) [id number] Self [employer](MCAID) O [id number] S [id number] MEDICAID [id number] SP [id number] MEDICAID M [id number] S [id number] [facility] Community Plan Health Maintenance Organization (HMO) [id number] Self MEDICAID W [id number] S [id number] MEDICAID W [id number] S [id number] HMO BLUE OPTION W [id number] S V [id number] HMO BLUE OPTION W [id number] S [id number] MEDICAID GME W [id number] N HMO BLUE OPTION W [id number] S [id number] BLUE CHOICE OPTN FHP O [id number] S [id number] BLUE [employer] PLAN [id number] SP [id number] HMO BLUE [id number] SP [id number] UN COMMUNITY PLAN [facility] [id number] SP [id number] SELF PAY ONLY [id number] SP [id number] [facility] COMMUNITY PLAN [facility] [id number] SP [id number] ANSI-Medicaid [id number] ANSI-Medicaid [id number] ANSI-Medicaid [id number] ANSI-Medicaid [id number] UNITED HEALTHCARE(MCAID) O [id number] S [id number] [facility]-Medicaid [id number] [facility]-Medicaid [id number] Problems, Conditions, and Diagnoses Code Display Name Description Problem Type Effective Dates Data Source(s) B18.2 [id number] Chronic hepatitis C without hepatic coma Problem 06/15/2020 12:00:00 AM EST eCW1 ([facility]) N92.1 [id number] Menorrhagia with irregular cycle Problem 06/15/2020 12:00:00 AM EST eCW1 ([facility]) Surgeries/Procedures Procedure Description Date Indications Data Source(s) Immunization: Flublok Quadrivalent (18 years & older) 0.5mL IM (Influenza) 06/15/2020 12:00:00 AM EST eCW1 ([facility]) Results ID Date Data Source [id number] 05/04/2021 04:30:00 PM EDT [facility] Name Value Range Interpretation Code Description Data Brenda rce(s) Supporting Document(s) SARS-CoV-2 RNA Resp Ql RYAN+probe NOT DETECTED [facility] This lab was ordered by [facility] jacome and reported by [facility] Wong. ID Date Data Source [id number] 07/24/2020 12:00:00 AM EST [facility] Name Value Range Interpretation Code Description Data Brenda rce(s) Supporting Document(s) SARS-CoV-2 (COVID-19) RNA [Presence] in Respiratory specimen by RYAN with probe detection [facility] This lab was ordered by [facility] and reported by [employer]. Procedure Social History Code Duration Value Status Description Data Source(s ) Smoking 06/15/2020 12:00:00 AM EST Current Smoker completed Curre nt Smoker eCW1 ([facility]) Vital Signs ID Date Data Source UNK Name Value Range Interpretation Code Description Data Source(s) Body weight [lb_av] eCW1 ([facility]) Body height 64.25 [in_i] 64.25 [in_i] eCW1 ([facility]) Body mass index (BMI) [Ratio] 36.10 kg/m2 36.10 kg/m2 eCW1 ([facility]) Heart rate 79 /min 79 /min eCW1 ([facility]) Respiratory rate 18 /min 18 /min eCW1 ([facility]) Body temperature 97.5 [degF] 97.5 [degF] eCW1 ( [facility]) Systolic blood pressure 123 mm[Hg] 123 mm[Hg] e CW1 ([facility]) Diastolic blood pressure 81 mm[Hg] 81 mm[Hg] eCW1 ([facility])
== END 2021-05-30 15:31 | disposition left against medical advice (07) ==
LOC: M ED 12:03
DX: Z53.21 Procedure and treatment not carried out due to patient leaving prior to being seen by health care provider (principal)

== ENCOUNTER 2022-07-31 21:14 | Emergency (ER) | payer BC, MEDICAID, OTHER ==
[~2022-07-31] VITALS: Ht 162.6 cm; Wt 102.4 kg
[~2022-07-31 21:14] MED LIST changes: -FLUO10CA16 PO; +FLUO10CA18 PO; +OMEP-173 PO; -OMEP-218 PO
[2022-08-01 00:30] VITALS: BP 130/81
[2022-08-01] MEDS ORDERED: LIDOCAINE W/EPINEPHRINE 1% 20ML VIAL SC ONE (05:30)
[2022-08-01] MEDS ORDERED: LIDOCAINE W/EPINEPHRINE 1% 20ML VIAL As Ordered ONE (05:30)
== END 2022-08-01 06:06 | disposition home or self-care (01) ==
LOC: M ED 21:14
DX: S61.412A Laceration without foreign body of left hand, initial encounter (principal); W26.0XXA Contact with knife, initial encounter; Y92.099 Unspecified place in other non-institutional residence as the place of occurrence of the external cause; Y93.G1 Activity, food preparation and clean up; Z86.19 Personal history of other infectious and parasitic diseases; F17.200 Nicotine dependence, unspecified, uncomplicated; Z79.899 Other long term (current) drug therapy; Z88.0 Allergy status to penicillin; Z88.5 Allergy status to narcotic agent; Z88.8 Allergy status to other drugs, medicaments and biological substances; Z91.030 Bee allergy status